=== PATIENT | male | born 1935 | race Asian ===

== ENCOUNTER 2016-12-17 11:41 | Inpatient (IN) | payer MEDICARE, MEDICAID ==
[2016-12-17] VITALS (12 sets, daily range): BP systolic 100–135; BP diastolic 46–81
[~2016-12-17] VITALS: Ht 167.6 cm; Wt 63.5 kg
[~2016-12-17 11:41] MED LIST: ACET-868 GT; AMLO5TAB4 GT; ASPI81TA2 GT; ATOR40TA GT; BISA10SU61 RC; DIVA125C GT; ESCI5TAB GT; HYDR-552 GT; INSU100I19 SQ; INSU100V3 SQ; LISI-658 GT; MAGN400O6 GT; MERO1VIA IV; NA P133E RC; RXVAN XX
[2016-12-17 12:12] LABS: BASOPHILS # (AUTO) 0.1 /CMM (0.0-0.2); BASOPHILS % (AUTO) 0.5 % (0.0-2.0); DIFF TOTAL % 100 %; EOSINOPHILS # (AUTO) 0.6 /CMM (0.0-0.7); EOSINOPHILS % (AUTO) 5.1 % (0.0-6.0); HEMATOCRIT 23 % (39-51); HEMOGLOBIN 7.7 g/dL (13.5-17.5); LYMPHOCYTES # (AUTO) 2.9 /CMM (0.8-4.8); LYMPHOCYTES % (AUTO) 23.9 % (20.0-44.0); MEAN CORPUSCULAR HEMOGLOBIN 28 PG (26.0-33.0); MEAN CORPUSCULAR HGB CONC 33 g/dl (31.0-36.0); MEAN CORPUSCULAR VOLUME 85 fL (80-96); MONOCYTES # (AUTO) 1.2 /CMM (0.1-1.30); MONOCYTES % (AUTO) 10.4 % (2.0-12.0); NEUTROPHILS # (AUTO) 7.2 /CMM (1.8-8.9); NEUTROPHILS % (AUTO) 60.1 % (43.0-81.0); PLATELET COUNT (AUTO) 305 /CMM (150-450); RED BLOOD CELL COUNT(AUTO) 2.74 MIL/uL (4.5-6.0)
[2016-12-17 12:19] LABS: ANION GAP 5 (5-14); CALCIUM, SERUM 7.5 mg/dL (8.5-10.1); CARBON DIOXIDE 37 mmol/L (21-32); CHLORIDE 95 mmol/L (98-107); CREATININE 0.9 mg/dL (0.6-1.3); GLUCOSE 79 mg/dL (74-106); POTASSIUM 5.2 mmol/L (3.5-5.1); SODIUM SERUM 131 mmol/L (136-145); UREA NITROGEN, BLOOD 28 mg/dL (7-18)
[2016-12-17 12:23] LABS: KETONES,URINE Negative (NEGATIVE); LEUKOCYTE ESTERASE ,URINE Moderate (NEGATIVE)
[2016-12-17 12:23] LABS: PROTHROMBIN TIME 10.5 SECS (9.5-12.7)
[2016-12-17 12:25] LABS: ALANINE AMINOTRANSFERASE 17 U/L (12-78); ALBUMIN 1.8 g/dL (3.4-5.0); ASPARTATE AMINOTRANSFERASE 24 U/L (15-37); BILIRUBIN,DIRECT 0.1 mg/dL (0.0-0.2); BILIRUBIN,TOTAL 0.3 mg/dL (0.2-1.0); INDIRECT BILIRUBIN 0.2 mg/dL (0.0-1.1); TOTAL PROTEIN, SERUM 6.1 g/dL (6.4-8.2)
[2016-12-17 12:26] LABS: ADD UA MICROSCOPIC YES
[2016-12-17 12:27] LABS: TROPONIN I < 0.017 ng/mL (0.00-0.056)
[2016-12-17] MEDS ORDERED: METF500T4 GT (12:28)
[2016-12-17] MEDS ORDERED: NUT.237L30 GT (12:28)
[2016-12-17] MEDS ORDERED: DOCU-25 GT (12:28)
[2016-12-17 12:37] LABS: LACTIC ACID 2.3 mmol/L (0.4-2.0)
[2016-12-17 12:39] LABS: ADD URINE CULTURE YES; WBC,URINE TOO NUMEROUS TO COUN /HPF (0-3)
[2016-12-17] MEDS ORDERED: IV NS 0.9% 2,000 ML ONE (12:54)
[2016-12-17] MEDS ORDERED: CEFTRIAXONE 1GM BAG (ER ONLY) 50 ML IV ONE (12:54)
[2016-12-17] MEDS ORDERED: IV SET PRIMARY 1 EA INFUS.SET MC ONE (12:54)
[2016-12-17] MEDS ORDERED: CEFTRIAXONE 1GM BAG (ER ONLY) 1 GM/50 ML PIGGYBACK IV ONE (13:00)
[2016-12-17] MEDS ORDERED: IV NS 0.9% 1,000 ML BAG IV ONE (13:00)
[2016-12-17 13:07] LABS: *LACTIC ACID REFLEX FLAG YES
[2016-12-17] MEDS ORDERED: CEFTRIAXONE 1 G in IV D5W 50 ML IV SCH (14:00)
[2016-12-17] MEDS ORDERED: Z GUARD REMEDY 2 OZ OINT TP PRN (15:00)
[2016-12-17] MEDS ORDERED: ONDANSETRON HCL/PF 4 MG/2 ML VIAL IVP PRN (15:00)
[2016-12-17] MEDS ORDERED: GLYTROL 1,000 ML BAG GT SCH (15:00)
[2016-12-17] MEDS ORDERED: MAGNESIUM HYDROXIDE 30 ML UDC GT PRN (15:00)
[2016-12-17] MEDS ORDERED: BISACODYL SUPP (10 MG) 10 MG/SUPP.RECT SUPP.RECT RC PRN (15:00)
[2016-12-17] MEDS ORDERED: NA PHOS,M-B/NA PHOS,DI-BA 1 EA ENEMA RC PRN (15:00)
[2016-12-17] MEDS ORDERED: DEXTROSE 50%-WATER 50 ML DISP.SYRIN IV PRN (15:00)
[2016-12-17] MEDS ORDERED: FUROSEMIDE 20 MG/2 ML VIAL IV PRN (15:00)
[2016-12-17] MEDS ORDERED: FEE PK DOSING 1 MIN EA MC ONE (15:09)
[2016-12-17] MEDS ORDERED: IV SET PRIMARY PUMP SET 1 EA INFUS.SET MC ONE (15:41)
[2016-12-17] MEDS: IV NS 0.9% 1,000 ML IV PRN (15:46)
[2016-12-17] MEDS ORDERED: SECONDARY IV SET 1 EA INFUS.SET MC ONE ×2 (16:00→16:46)
[2016-12-17] MEDS: CEFTRIAXONE 1 G in IV D5W 50 ML IV SCH (16:03)
[2016-12-17] MEDS: DIVALPROEX SODIUM 125 MG CAP.SPRINK GT SCH (16:46)
[2016-12-17] MEDS: DOCUSATE SODIUM 100 MG CAPSULE PO SCH (16:46)
[2016-12-17] MEDS: BLOOD SUGAR DIAGNOSTIC 1 EACH STRIP IN SCH ×2 (16:47→23:08)
[2016-12-17] MEDS: VANCOMYCIN 1 GM in IV D5W 250 ML IV SCH (16:47)
[2016-12-17] MEDS: METFORMIN 500 MG TABLET GT SCH (16:47)
[2016-12-17] MEDS: GLYTROL 1,000 ML BAG GT SCH (16:55)
[2016-12-17] MEDS ORDERED: IV NS 0.9% 250 ML IV ONE ×3 (17:37→21:47)
[2016-12-17] MEDS: HYDROCODONE/APAP 5/325MG 1 EACH TABLET GT SCH (21:00)
[2016-12-17] MEDS ORDERED: BLOOD IV SET 1 EA INFUS.SET MC ONE (21:44)
[2016-12-17] MEDS: INSULIN DETEMIR 100 UNIT/ML CARTRIDGE SQ SCH (22:00)
[2016-12-17] MEDS: ATORVASTATIN 40 MG TABLET GT SCH (22:47)
[2016-12-17] MEDS: INSULIN REGULAR, HUMAN 100 UNIT/ML 3 ML VIAL SQ PRN ×2 (23:21→23:36)
[2016-12-18 01:10] VITALS: BP 145/54
[2016-12-18 04:00] VITALS: BP 129/61
[2016-12-18] MEDS: VANCOMYCIN 1 GM in IV D5W 250 ML IV SCH ×2 (05:41→16:33)
[2016-12-18 06:53] LABS: BASOPHILS # (AUTO) 0.1 /CMM (0.0-0.2); BASOPHILS % (AUTO) 0.5 % (0.0-2.0); DIFF TOTAL % 100 %; EOSINOPHILS # (AUTO) 0.3 /CMM (0.0-0.7); EOSINOPHILS % (AUTO) 3.1 % (0.0-6.0); HEMATOCRIT 29 % (39-51); HEMOGLOBIN 9.9 g/dL (13.5-17.5); LYMPHOCYTES # (AUTO) 1.8 /CMM (0.8-4.8); LYMPHOCYTES % (AUTO) 16.1 % (20.0-44.0); MEAN CORPUSCULAR HEMOGLOBIN 31 PG (26.0-33.0); MEAN CORPUSCULAR HGB CONC 34 g/dl (31.0-36.0); MEAN CORPUSCULAR VOLUME 89 fL (80-96); MONOCYTES # (AUTO) 1.5 /CMM (0.1-1.30); MONOCYTES % (AUTO) 13.3 % (2.0-12.0); NEUTROPHILS # (AUTO) 7.6 /CMM (1.8-8.9); PLATELET COUNT (AUTO) 256 /CMM (150-450); RED BLOOD CELL COUNT(AUTO) 3.24 MIL/uL (4.5-6.0); WHITE BLOOD COUNT (AUTO) 11.3 K/uL (4.3-11.0)
[2016-12-18] MEDS: BLOOD SUGAR DIAGNOSTIC 1 EACH STRIP IN SCH ×3 (06:55→17:31)
[2016-12-18] MEDS: INSULIN REGULAR, HUMAN 100 UNIT/ML 3 ML VIAL SQ PRN ×2 (06:56→11:50)
[2016-12-18 07:17] LABS: THYROID STIMULATING HORMONE 1.958 uIU/mL (0.358-3.74)
[2016-12-18 07:26] LABS: ALBUMIN 1.8 g/dL (3.4-5.0); BILIRUBIN,TOTAL 0.3 mg/dL (0.2-1.0); CREATININE 0.8 mg/dL (0.6-1.3); PHOSPHORUS 4.6 mg/dL (2.5-4.9); TOTAL PROTEIN, SERUM 6.1 g/dL (6.4-8.2)
[2016-12-18 08:00] VITALS: BP_SYST 120; BP_SYST 145; BP_DIAS 58; BP_DIAS 65
[2016-12-18] MEDS: ESCITALOPRAM OXALATE (10 MG) 10 MG TABLET GT SCH (08:29)
[2016-12-18] MEDS: METFORMIN 500 MG TABLET GT SCH ×2 (08:29→16:33)
[2016-12-18] MEDS: DIVALPROEX SODIUM 125 MG CAP.SPRINK GT SCH ×2 (08:29→16:33)
[2016-12-18] MEDS: DOCUSATE SODIUM 100 MG CAPSULE PO SCH ×2 (08:30→16:33)
[2016-12-18] MEDS: AMLODIPINE BESYLATE 5 MG TABLET GT SCH (08:30)
[2016-12-18] MEDS: LISINOPRIL (20MG) 20 MG TABLET GT SCH (08:31)
[2016-12-18] MEDS: HYDROCODONE/APAP 5/325MG 1 EACH TABLET GT SCH ×2 (08:31→21:01)
[2016-12-18] MEDS: ASPIRIN 81 MG TAB.CHEW GT SCH (08:31)
[2016-12-18 14:41] LABS: THYROID STIMULATING HORMONE 2.319 uIU/mL (0.358-3.74); URIC ACID 5.3 mg/dL (2.6-7.2)
[2016-12-18 15:08] LABS: %FREE PSA 20.1 % (0-10); FREE PSA 0.49 ng/mL (0.00-45)
[2016-12-18] MEDS: CEFTRIAXONE 1 G in IV D5W 50 ML IV SCH (15:51)
[2016-12-18 15:52] VITALS: BP 119/54
[2016-12-18 16:00] VITALS: BP 119/54
[2016-12-18 20:00] VITALS: BP 136/57
[2016-12-18] MEDS: ATORVASTATIN 40 MG TABLET GT SCH (21:01)
[2016-12-18] MEDS: INSULIN DETEMIR 100 UNIT/ML CARTRIDGE SQ SCH (21:05)
[2016-12-18] MEDS: IV NS 0.9% 1,000 ML IV PRN (21:19)
[2016-12-19] VITALS: BP 134/60
[2016-12-19] MEDS: BLOOD SUGAR DIAGNOSTIC 1 EACH STRIP IN SCH ×5 (00:24→23:20)
[2016-12-19] MEDS: GLYTROL 1,000 ML BAG GT SCH ×2 (01:28→18:21)
[2016-12-19 04:00] VITALS: BP 130/58
[2016-12-19] MEDS: VANCOMYCIN 1 GM in IV D5W 250 ML IV SCH ×2 (04:00→04:45)
[2016-12-19 04:39] LABS: CALCIUM, SERUM 7.6 mg/dL (8.5-10.1); CREATININE 0.8 mg/dL (0.6-1.3); POTASSIUM 4.6 mmol/L (3.5-5.1)
[2016-12-19 08:00] VITALS: BP 147/60
[2016-12-19] MEDS: DIVALPROEX SODIUM 125 MG CAP.SPRINK GT SCH ×2 (09:01→17:55)
[2016-12-19] MEDS: ASPIRIN 81 MG TAB.CHEW GT SCH (09:01)
[2016-12-19] MEDS: HYDROCODONE/APAP 5/325MG 1 EACH TABLET GT SCH ×2 (09:03→21:22)
[2016-12-19] MEDS: METFORMIN 500 MG TABLET GT SCH ×2 (09:10→17:55)
[2016-12-19] MEDS: DOCUSATE SODIUM 100 MG CAPSULE PO SCH ×2 (09:10→17:55)
[2016-12-19] MEDS: AMLODIPINE BESYLATE 5 MG TABLET GT SCH (09:10)
[2016-12-19] MEDS: LISINOPRIL (20MG) 20 MG TABLET GT SCH (09:12)
[2016-12-19] MEDS: ESCITALOPRAM OXALATE (10 MG) 10 MG TABLET GT SCH (09:13)
[2016-12-19] MEDS: INSULIN REGULAR, HUMAN 100 UNIT/ML 3 ML VIAL SQ PRN (12:28)
[2016-12-19 13:21] LABS: VIT D, 25-HYDROXY 26.8 ng/mL (30.0-100.0)
[2016-12-19] MEDS ORDERED: IV NS 0.9% 250 ML IV ONE (15:50)
[2016-12-19] MEDS: CEFTRIAXONE 1 G in IV D5W 50 ML IV SCH (15:54)
[2016-12-19 16:00] VITALS: BP 120/53
[2016-12-19] MEDS ORDERED: VANCOMYCIN 1 GM in IV D5W 250 ML IV SCH (16:00)
[2016-12-19] MEDS: LACTOBACILLUS RHAMNOSUS GG 1 EACH CAP.SPRINK GT SCH (17:56)
[2016-12-19 19:55] VITALS: BP 127/57
[2016-12-19 20:00] VITALS: BP 127/57
[2016-12-19] MEDS: ATORVASTATIN 40 MG TABLET GT SCH (21:22)
[2016-12-19] MEDS: INSULIN DETEMIR 100 UNIT/ML CARTRIDGE SQ SCH (21:26)
[2016-12-20 04:00] VITALS: BP 132/44
[2016-12-20] MEDS: BLOOD SUGAR DIAGNOSTIC 1 EACH STRIP IN SCH ×4 (05:51→23:18)
[2016-12-20 07:06] LABS: BASOPHILS # (AUTO) 0.1 /CMM (0.0-0.2); BASOPHILS % (AUTO) 0.6 % (0.0-2.0); DIFF TOTAL % 100 %; EOSINOPHILS % (AUTO) 8.6 % (0.0-6.0); HEMATOCRIT 27 % (39-51); HEMOGLOBIN 9.2 g/dL (13.5-17.5); LYMPHOCYTES # (AUTO) 2.4 /CMM (0.8-4.8); LYMPHOCYTES % (AUTO) 20.7 % (20.0-44.0); MEAN CORPUSCULAR HEMOGLOBIN 30 PG (26.0-33.0); MEAN CORPUSCULAR HGB CONC 34 g/dl (31.0-36.0); MEAN CORPUSCULAR VOLUME 89 fL (80-96); MONOCYTES # (AUTO) 1.6 /CMM (0.1-1.30); MONOCYTES % (AUTO) 13.4 % (2.0-12.0); NEUTROPHILS # (AUTO) 6.7 /CMM (1.8-8.9); NEUTROPHILS % (AUTO) 56.7 % (43.0-81.0); PLATELET COUNT (AUTO) 231 /CMM (150-450); RED BLOOD CELL COUNT(AUTO) 3.07 MIL/uL (4.5-6.0); WHITE BLOOD COUNT (AUTO) 11.8 K/uL (4.3-11.0)
[2016-12-20 07:35] LABS: CALCIUM, SERUM 7.5 mg/dL (8.5-10.1); CREATININE 0.9 mg/dL (0.6-1.3); POTASSIUM 4.5 mmol/L (3.5-5.1)
[2016-12-20 08:00] VITALS: BP 142/57
[2016-12-20] MEDS: DIVALPROEX SODIUM 125 MG CAP.SPRINK GT SCH ×2 (08:39→16:05)
[2016-12-20] MEDS: ASPIRIN 81 MG TAB.CHEW GT SCH (08:39)
[2016-12-20] MEDS: METFORMIN 500 MG TABLET GT SCH ×2 (08:39→16:05)
[2016-12-20] MEDS: DOCUSATE SODIUM 100 MG CAPSULE PO SCH ×2 (08:39→16:05)
[2016-12-20] MEDS: LACTOBACILLUS RHAMNOSUS GG 1 EACH CAP.SPRINK GT SCH ×2 (08:40→16:05)
[2016-12-20] MEDS: HYDROCODONE/APAP 5/325MG 1 EACH TABLET GT SCH ×2 (08:41→21:51)
[2016-12-20] MEDS: AMLODIPINE BESYLATE 5 MG TABLET GT SCH (08:42)
[2016-12-20] MEDS: ESCITALOPRAM OXALATE (10 MG) 10 MG TABLET GT SCH (08:42)
[2016-12-20] MEDS: LISINOPRIL (20MG) 20 MG TABLET GT SCH (08:43)
[2016-12-20] MEDS: GLYTROL 1,000 ML BAG GT SCH (08:52)
[2016-12-20] MEDS: INSULIN REGULAR, HUMAN 100 UNIT/ML 3 ML VIAL SQ PRN (12:15)
[2016-12-20] MEDS ORDERED: IV NS 0.9% 500 ML IV ONE ×2 (14:34→15:00)
[2016-12-20] MEDS ORDERED: IV NS 0.9% 500 ML BAG IV ONE (15:00)
[2016-12-20 16:00] VITALS: BP 145/72
[2016-12-20] MEDS: CEFTRIAXONE 1 G in IV D5W 50 ML IV SCH (16:01)
[2016-12-20 20:00] VITALS: BP 123/55
[2016-12-20] MEDS: ATORVASTATIN 40 MG TABLET GT SCH (21:46)
[2016-12-20] MEDS: INSULIN DETEMIR 100 UNIT/ML CARTRIDGE SQ SCH (21:51)
[2016-12-21 04:00] VITALS: BP 128/52
[2016-12-21] MEDS: BLOOD SUGAR DIAGNOSTIC 1 EACH STRIP IN SCH ×2 (06:50→11:30)
[2016-12-21] MEDS: INSULIN REGULAR, HUMAN 100 UNIT/ML 3 ML VIAL SQ PRN ×2 (06:50→11:36)
[2016-12-21 07:59] LABS: CALCIUM, SERUM 7.7 mg/dL (8.5-10.1); POTASSIUM 4.6 mmol/L (3.5-5.1)
[2016-12-21 08:00] VITALS: BP 134/54
[2016-12-21 09:08] VITALS: BP 134/54
[2016-12-21] MEDS: DOCUSATE SODIUM 100 MG CAPSULE PO SCH (09:08)
[2016-12-21] MEDS: LISINOPRIL (20MG) 20 MG TABLET GT SCH (09:08)
[2016-12-21] MEDS: DIVALPROEX SODIUM 125 MG CAP.SPRINK GT SCH (09:08)
[2016-12-21] MEDS: HYDROCODONE/APAP 5/325MG 1 EACH TABLET GT SCH (09:08)
[2016-12-21] MEDS: ASPIRIN 81 MG TAB.CHEW GT SCH (09:08)
[2016-12-21] MEDS: LACTOBACILLUS RHAMNOSUS GG 1 EACH CAP.SPRINK GT SCH (09:08)
[2016-12-21] MEDS: METFORMIN 500 MG TABLET GT SCH (09:08)
[2016-12-21] MEDS: AMLODIPINE BESYLATE 5 MG TABLET GT SCH (09:08)
[2016-12-21] MEDS: ESCITALOPRAM OXALATE (10 MG) 10 MG TABLET GT SCH (09:08)
[2016-12-21] MEDS ORDERED: COLISTIMETHATE SODIUM 100 MG in IV NS 0.9% 50 ML IV SCH (11:00)
[2016-12-21] MEDS ORDERED: SECONDARY IV SET 1 EA INFUS.SET MC ONE (11:23)
[2016-12-21] MEDS ORDERED: IV SET PRIMARY PUMP SET 1 EA INFUS.SET MC ONE (12:06)
== END 2016-12-21 16:25 | DRG 689 ==
LOC: ER 11:45 → MEDSG1 13:11
PROVIDERS: ADMIT Nurse Practitioner Acute Care; ATTEND Nurse Practitioner Acute Care
PROC: 30233N1 Transfusion of Nonautologous Red Blood Cells into Peripheral Vein, Percutaneous Approach (ICD-10-PCS; principal; 2016-12-17)
PROC: 05H533Z Insertion of Infusion Device into Right Subclavian Vein, Percutaneous Approach (ICD-10-PCS; 2016-12-17)
PROC: B546ZZA Ultrasonography of Right Subclavian Vein, Guidance (ICD-10-PCS; 2016-12-17)
DX: N39.0 Urinary tract infection, site not specified (principal); E43 Unspecified severe protein-calorie malnutrition; R53.2 Functional quadriplegia; D62 Acute posthemorrhagic anemia; E87.1 Hypo-osmolality and hyponatremia; E87.2 Acidosis; E86.0 Dehydration; E78.5 Hyperlipidemia, unspecified; E11.9 Type 2 diabetes mellitus without complications; G30.9 Alzheimer's disease, unspecified; F29 Unspecified psychosis not due to a substance or known physiological condition; Z86.73 Personal history of transient ischemic attack (TIA), and cerebral infarction without residual deficits; Z93.1 Gastrostomy status; M10.9 Gout, unspecified; I10 Essential (primary) hypertension; D64.9 Anemia, unspecified; E87.5 Hyperkalemia; Z68.22 Body mass index [BMI] 22.0-22.9, adult; F02.80 Dementia in other diseases classified elsewhere, unspecified severity, without behavioral disturbance, psychotic disturbance, mood disturbance, and anxiety; S81.802A Unspecified open wound, left lower leg, initial encounter; X58.XXXA Exposure to other specified factors, initial encounter; Y92.9 Unspecified place or not applicable
CPT/HCPCS: 36415; 36569; 71010-TC; 80048-TC; 80053-TC; 80061-TC; 80076-TC; 80202-TC; 81000-TC; 82272-TC; 82306; 82378; 82728-TC; 82746; 82962-TC; 83010; 83540-TC; 83605-TC; 83615-TC; 83735-TC; 84100-TC; 84153-TC; 84154-TC; 84443-TC; 84484-TC; 84550-TC; 85025-TC; 85652-TC; 85730-TC; 86850-TC; 86921-TC; 87040-TC; 87081-TC; 87086-TC; 87186-TC; 94799-TC; A4216; A4606; A6402; J0696; J0770; J1815; J1940; J3370; J7030; J7040; J7050; J7060; P9016-BL; Z7610

== ENCOUNTER 2017-01-17 17:05 | Inpatient (IN) | payer MEDICARE, MEDICAID ==
[~2017-01-17] VITALS: Ht 167.6 cm; Wt 56.2 kg
[~2017-01-17 17:05] MED LIST changes: -ASPI81TA2 GT; +DOCU-25 GT; -MERO1VIA IV; +METF500T4 GT; +NUT.237L30 GT; -RXVAN XX
[2017-01-17 17:42] LABS: BASOPHILS # (AUTO) 0.3 /CMM (0.0-0.2); BASOPHILS % (AUTO) 1.5 % (0.0-2.0); CALCIUM, SERUM 7.8 mg/dL (8.5-10.1); DIFF TOTAL % 100 %; EOSINOPHILS # (AUTO) 0.7 /CMM (0.0-0.7); HEMATOCRIT 23 % (39-51); HEMOGLOBIN 7.7 g/dL (13.5-17.5); LYMPHOCYTES # (AUTO) 3.2 /CMM (0.8-4.8); LYMPHOCYTES % (AUTO) 19.4 % (20.0-44.0); MEAN CORPUSCULAR HEMOGLOBIN 29 PG (26.0-33.0); MEAN CORPUSCULAR HGB CONC 34 g/dl (31.0-36.0); MEAN CORPUSCULAR VOLUME 85 fL (80-96); MONOCYTES # (AUTO) 1.2 /CMM (0.1-1.30); MONOCYTES % (AUTO) 7.2 % (2.0-12.0); NEUTROPHILS # (AUTO) 11.3 /CMM (1.8-8.9); NEUTROPHILS % (AUTO) 67.9 % (43.0-81.0); PLATELET COUNT (AUTO) 290 /CMM (150-450); POTASSIUM 4.3 mmol/L (3.5-5.1); RED BLOOD CELL COUNT(AUTO) 2.66 MIL/uL (4.5-6.0); WHITE BLOOD COUNT (AUTO) 16.7 K/uL (4.3-11.0)
[2017-01-17 17:47] LABS: ALBUMIN 1.6 g/dL (3.4-5.0); BILIRUBIN,TOTAL 0.2 mg/dL (0.2-1.0)
[2017-01-17 17:49] LABS: INDIRECT BILIRUBIN 0.2 mg/dL (0.0-1.1)
[2017-01-17 17:50] LABS: TROPONIN I 0.019 ng/mL (0.00-0.056)
[2017-01-17 17:51] LABS: PROTHROMBIN TIME 10.5 SECS (9.5-12.7)
[2017-01-17 17:58] LABS: LACTIC ACID 1.5 mmol/L (0.4-2.0)
[2017-01-17 18:22] LABS: KETONES,URINE Negative (NEGATIVE); LEUKOCYTE ESTERASE ,URINE Trace (NEGATIVE); PH,URINE 8.5 (5.0-8.0)
[2017-01-17 18:27] LABS: ADD UA MICROSCOPIC YES
[2017-01-17] MEDS ORDERED: CEFTRIAXONE 1 G in IV D5W 50 ML IV ONE (18:30)
[2017-01-17] MEDS ORDERED: CEFTRIAXONE 1GM BAG (ER ONLY) 50 ML IV ONE (18:36)
[2017-01-17] MEDS ORDERED: IV SET PRIMARY PUMP SET 1 EA INFUS.SET MC ONE (18:36)
[2017-01-17 18:41] LABS: RBC,URINE TOO NUMEROUS TO COUN /HPF (0-2)
[2017-01-17 18:42] LABS: ADD URINE CULTURE YES
[2017-01-17] MEDS ORDERED: INSULIN REGULAR, HUMAN 100 UNIT/ML 3 ML VIAL SQ PRN (20:30)
[2017-01-17] MEDS ORDERED: ACETAMINOPHEN 325 MG TABLET PO PRN (20:30)
[2017-01-17] MEDS ORDERED: MORPHINE SULFATE INJ 2 MG/ML DISP.SYRIN IV PRN (20:30)
[2017-01-17] MEDS ORDERED: ONDANSETRON HCL/PF 4 MG/2 ML VIAL IVP PRN (20:30)
[2017-01-17] MEDS ORDERED: Z GUARD REMEDY 2 OZ OINT TP PRN (20:30)
[2017-01-17] MEDS ORDERED: MAGNESIUM HYDROXIDE 30 ML UDC GT PRN (20:30)
[2017-01-17] MEDS ORDERED: DEXTROSE 50%-WATER 50 ML DISP.SYRIN IV PRN (21:00)
[2017-01-17] MEDS: GLYTROL 1,000 ML BAG GT SCH (21:09)
[2017-01-17] MEDS: ATORVASTATIN 40 MG TABLET GT SCH (21:35)
[2017-01-17] MEDS: INSULIN DETEMIR 100 UNIT/ML CARTRIDGE SQ SCH (21:39)
[2017-01-17] MEDS ORDERED: IV NS 0.9% 250 ML IV ONE (22:07)
[2017-01-17] MEDS ORDERED: BLOOD IV SET 1 EA INFUS.SET MC ONE (22:07)
[2017-01-17 23:02] VITALS: BP 158/80
[2017-01-17 23:20] VITALS: BP 135/70
[2017-01-17] MEDS: BLOOD SUGAR DIAGNOSTIC 1 EACH STRIP IN SCH (23:31)
[2017-01-17] MEDS: INSULIN REGULAR, HUMAN 100 UNIT/ML 3 ML VIAL SQ PRN (23:34)
[2017-01-18] VITALS (13 sets, daily range): BP systolic 136–158; BP diastolic 65–76
[2017-01-18] MEDS ORDERED: IV SET PRIMARY PUMP SET 1 EA INFUS.SET MC ONE (04:38)
[2017-01-18] MEDS: BLOOD SUGAR DIAGNOSTIC 1 EACH STRIP IN SCH ×4 (05:54→23:23)
[2017-01-18] MEDS: IV NS 0.9% 1,000 ML IV PRN (05:55)
[2017-01-18 06:37] LABS: BASOPHILS # (AUTO) 0.5 /CMM (0.0-0.2); BASOPHILS % (AUTO) 4.5 % (0.0-2.0); DIFF TOTAL % 100 %; EOSINOPHILS # (AUTO) 0.7 /CMM (0.0-0.7); EOSINOPHILS % (AUTO) 5.5 % (0.0-6.0); HEMATOCRIT 30 % (39-51); HEMOGLOBIN 10.1 g/dL (13.5-17.5); LYMPHOCYTES # (AUTO) 2.8 /CMM (0.8-4.8); MEAN CORPUSCULAR HEMOGLOBIN 29 PG (26.0-33.0); MEAN CORPUSCULAR HGB CONC 34 g/dl (31.0-36.0); MEAN CORPUSCULAR VOLUME 85 fL (80-96); MONOCYTES # (AUTO) 1.2 /CMM (0.1-1.30); MONOCYTES % (AUTO) 10.3 % (2.0-12.0); NEUTROPHILS # (AUTO) 6.8 /CMM (1.8-8.9); NEUTROPHILS % (AUTO) 56.7 % (43.0-81.0); PLATELET COUNT (AUTO) 276 /CMM (150-450)
[2017-01-18 06:59] LABS: ALBUMIN 1.5 g/dL (3.4-5.0); BILIRUBIN,DIRECT 0.1 mg/dL (0.0-0.2); BILIRUBIN,TOTAL 0.5 mg/dL (0.2-1.0); CALCIUM, SERUM 7.8 mg/dL (8.5-10.1); CREATININE 0.8 mg/dL (0.6-1.3); INDIRECT BILIRUBIN 0.4 mg/dL (0.0-1.1); PHOSPHORUS 4.3 mg/dL (2.5-4.9); POTASSIUM 4.1 mmol/L (3.5-5.1); TOTAL PROTEIN, SERUM 5.9 g/dL (6.4-8.2)
[2017-01-18 07:12] LABS: THYROID STIMULATING HORMONE 3.531 uIU/mL (0.358-3.74)
[2017-01-18] MEDS: DIVALPROEX SODIUM 125 MG CAP.SPRINK GT SCH ×2 (08:35→18:02)
[2017-01-18] MEDS: AMLODIPINE BESYLATE 5 MG TABLET GT SCH (08:36)
[2017-01-18] MEDS: ESCITALOPRAM OXALATE (10 MG) 10 MG TABLET GT SCH (08:36)
[2017-01-18] MEDS: LISINOPRIL (20MG) 20 MG TABLET GT SCH (08:37)
[2017-01-18] MEDS: METFORMIN 500 MG TABLET GT SCH ×2 (08:37→18:02)
[2017-01-18] MEDS: PANTOPRAZOLE 40 MG VIAL IV SCH (08:37)
[2017-01-18] MEDS: INSULIN REGULAR, HUMAN 100 UNIT/ML 3 ML VIAL SQ PRN (18:06)
[2017-01-18] MEDS: CEFTRIAXONE 1 G in IV D5W 50 ML IV SCH (18:07)
[2017-01-18] MEDS ORDERED: SECONDARY IV SET 1 EA INFUS.SET MC ONE (18:16)
[2017-01-18] MEDS: GLYTROL 1,000 ML BAG GT SCH (20:06)
[2017-01-18] MEDS: ATORVASTATIN 40 MG TABLET GT SCH (21:23)
[2017-01-18] MEDS: INSULIN DETEMIR 100 UNIT/ML CARTRIDGE SQ SCH (21:32)
[2017-01-19] VITALS (7 sets, daily range): BP systolic 130–154; BP diastolic 67–77
[2017-01-19] MEDS: IV NS 0.9% 1,000 ML IV PRN ×2 (05:31→17:04)
[2017-01-19] MEDS: BLOOD SUGAR DIAGNOSTIC 1 EACH STRIP IN SCH ×4 (05:37→23:34)
[2017-01-19 06:27] LABS: BASOPHILS # (AUTO) 0.3 /CMM (0.0-0.2); BASOPHILS % (AUTO) 2.6 % (0.0-2.0); DIFF TOTAL % 100 %; EOSINOPHILS # (AUTO) 0.3 /CMM (0.0-0.7); EOSINOPHILS % (AUTO) 2.7 % (0.0-6.0); HEMATOCRIT 30 % (39-51); LYMPHOCYTES # (AUTO) 2.7 /CMM (0.8-4.8); LYMPHOCYTES % (AUTO) 22.5 % (20.0-44.0); MEAN CORPUSCULAR HEMOGLOBIN 29 PG (26.0-33.0); MEAN CORPUSCULAR HGB CONC 34 g/dl (31.0-36.0); MEAN CORPUSCULAR VOLUME 88 fL (80-96); MONOCYTES # (AUTO) 1.4 /CMM (0.1-1.30); NEUTROPHILS # (AUTO) 7.2 /CMM (1.8-8.9); NEUTROPHILS % (AUTO) 60.2 % (43.0-81.0); PLATELET COUNT (AUTO) 286 /CMM (150-450); RED BLOOD CELL COUNT(AUTO) 3.41 MIL/uL (4.5-6.0); WHITE BLOOD COUNT (AUTO) 11.9 K/uL (4.3-11.0)
[2017-01-19 06:35] LABS: ALBUMIN 1.5 g/dL (3.4-5.0); CALCIUM, SERUM 7.7 mg/dL (8.5-10.1); CREATININE 0.8 mg/dL (0.6-1.3); POTASSIUM 3.7 mmol/L (3.5-5.1)
[2017-01-19] MEDS: PANTOPRAZOLE 40 MG VIAL IV SCH (09:35)
[2017-01-19] MEDS: DIVALPROEX SODIUM 125 MG CAP.SPRINK GT SCH ×2 (09:35→16:17)
[2017-01-19] MEDS: ESCITALOPRAM OXALATE (10 MG) 10 MG TABLET GT SCH (09:36)
[2017-01-19] MEDS: METFORMIN 500 MG TABLET GT SCH ×2 (09:36→16:17)
[2017-01-19] MEDS: AMLODIPINE BESYLATE 5 MG TABLET GT SCH (09:38)
[2017-01-19] MEDS: LISINOPRIL (20MG) 20 MG TABLET GT SCH (09:39)
[2017-01-19] MEDS ORDERED: SECONDARY IV SET 1 EA INFUS.SET MC ONE (16:12)
[2017-01-19] MEDS: ALBUMIN 25% 25 GM in PREMIX 1 EA IV SCH (16:17)
[2017-01-19] MEDS: CEFTRIAXONE 1 G in IV D5W 50 ML IV SCH (16:19)
[2017-01-19] MEDS: GLYTROL 1,000 ML BAG GT SCH (16:58)
[2017-01-19] MEDS: INSULIN REGULAR, HUMAN 100 UNIT/ML 3 ML VIAL SQ PRN ×2 (18:30→23:36)
[2017-01-19] MEDS: INSULIN DETEMIR 100 UNIT/ML CARTRIDGE SQ SCH (22:00)
[2017-01-19] MEDS: ATORVASTATIN 40 MG TABLET GT SCH (22:03)
[2017-01-20] VITALS: BP 145/73
[2017-01-20] MEDS: ALBUMIN 25% 25 GM in PREMIX 1 EA IV SCH (02:36)
[2017-01-20] MEDS: BLOOD SUGAR DIAGNOSTIC 1 EACH STRIP IN SCH ×3 (05:42→18:00)
[2017-01-20 06:07] VITALS: BP 140/68
[2017-01-20 06:41] LABS: BASOPHILS # (AUTO) 0.2 /CMM (0.0-0.2); BASOPHILS % (AUTO) 1.2 % (0.0-2.0); DIFF TOTAL % 100 %; EOSINOPHILS # (AUTO) 0.2 /CMM (0.0-0.7); EOSINOPHILS % (AUTO) 1.8 % (0.0-6.0); HEMATOCRIT 31 % (39-51); HEMOGLOBIN 10.3 g/dL (13.5-17.5); LYMPHOCYTES # (AUTO) 2.3 /CMM (0.8-4.8); MEAN CORPUSCULAR HEMOGLOBIN 30 PG (26.0-33.0); MEAN CORPUSCULAR HGB CONC 34 g/dl (31.0-36.0); MEAN CORPUSCULAR VOLUME 88 fL (80-96); MONOCYTES # (AUTO) 1.7 /CMM (0.1-1.30); MONOCYTES % (AUTO) 12.8 % (2.0-12.0); NEUTROPHILS # (AUTO) 8.9 /CMM (1.8-8.9); NEUTROPHILS % (AUTO) 67.2 % (43.0-81.0); PLATELET COUNT (AUTO) 278 /CMM (150-450); RED BLOOD CELL COUNT(AUTO) 3.47 MIL/uL (4.5-6.0); WHITE BLOOD COUNT (AUTO) 13.3 K/uL (4.3-11.0)
[2017-01-20 06:56] LABS: ALBUMIN 2.3 g/dL (3.4-5.0); CALCIUM, SERUM 7.8 mg/dL (8.5-10.1); CREATININE 0.8 mg/dL (0.6-1.3); POTASSIUM 3.5 mmol/L (3.5-5.1)
[2017-01-20 08:00] VITALS: BP 140/68
[2017-01-20] MEDS: METFORMIN 500 MG TABLET GT SCH ×2 (09:06→18:00)
[2017-01-20] MEDS: PANTOPRAZOLE 40 MG VIAL IV SCH (09:06)
[2017-01-20] MEDS: LISINOPRIL (20MG) 20 MG TABLET GT SCH (09:06)
[2017-01-20] MEDS: DIVALPROEX SODIUM 125 MG CAP.SPRINK GT SCH ×2 (09:07→18:00)
[2017-01-20] MEDS: AMLODIPINE BESYLATE 5 MG TABLET GT SCH (09:07)
[2017-01-20] MEDS: ESCITALOPRAM OXALATE (10 MG) 10 MG TABLET GT SCH (09:07)
[2017-01-20] MEDS: IV NS 0.9% 1,000 ML IV PRN (09:08)
[2017-01-20] MEDS: GLYTROL 1,000 ML BAG GT SCH (09:09)
[2017-01-20] MEDS: MUPIROCIN OINT 2% 22 GM TUBE SCH ×2 (11:47→22:09)
[2017-01-20 16:00] VITALS: BP 135/71
[2017-01-20] MEDS: INSULIN REGULAR, HUMAN 100 UNIT/ML 3 ML VIAL SQ PRN (18:04)
[2017-01-20 20:00] VITALS: BP 159/74
[2017-01-20 20:38] LABS: KETONES,URINE NEGATIVE (NEGATIVE); LEUKOCYTE ESTERASE ,URINE NEGATIVE (NEGATIVE)
[2017-01-20 20:53] LABS: ADD UA MICROSCOPIC YES
[2017-01-20 20:55] LABS: RBC,URINE 21-50 /HPF (0-2)
[2017-01-20 20:56] LABS: ADD URINE CULTURE NO; WBC,URINE 0-2 /HPF (0-3)
[2017-01-20] MEDS: ATORVASTATIN 40 MG TABLET GT SCH (22:10)
[2017-01-20] MEDS: INSULIN DETEMIR 100 UNIT/ML CARTRIDGE SQ SCH (22:18)
[2017-01-21] MEDS: BLOOD SUGAR DIAGNOSTIC 1 EACH STRIP IN SCH ×3 (00:19→12:42)
[2017-01-21] MEDS: INSULIN REGULAR, HUMAN 100 UNIT/ML 3 ML VIAL SQ PRN ×2 (00:21→05:43)
[2017-01-21] MEDS: GLYTROL 1,000 ML BAG GT SCH (03:17)
[2017-01-21 08:00] VITALS: BP 165/74
[2017-01-21] MEDS: DIVALPROEX SODIUM 125 MG CAP.SPRINK GT SCH (08:39)
[2017-01-21] MEDS: PANTOPRAZOLE 40 MG VIAL IV SCH (08:39)
[2017-01-21 08:40] VITALS: BP 165/75
[2017-01-21] MEDS: AMLODIPINE BESYLATE 5 MG TABLET GT SCH (08:40)
[2017-01-21] MEDS: ESCITALOPRAM OXALATE (10 MG) 10 MG TABLET GT SCH (08:40)
[2017-01-21] MEDS: METFORMIN 500 MG TABLET GT SCH (08:40)
[2017-01-21] MEDS: LISINOPRIL (20MG) 20 MG TABLET GT SCH (08:40)
[2017-01-21] MEDS: MUPIROCIN OINT 2% 22 GM TUBE SCH (08:53)
== END 2017-01-21 15:15 | DRG 383 ==
LOC: ER 17:07 → TELE 20:11 → MED 01-20 09:03
PROC: 30233N1 Transfusion of Nonautologous Red Blood Cells into Peripheral Vein, Percutaneous Approach (ICD-10-PCS; principal; 2017-01-17)
DX: K27.7 Chronic peptic ulcer, site unspecified, without hemorrhage or perforation (principal); N17.0 Acute kidney failure with tubular necrosis; E43 Unspecified severe protein-calorie malnutrition; G93.40 Encephalopathy, unspecified; R53.2 Functional quadriplegia; N39.0 Urinary tract infection, site not specified; E87.2 Acidosis; D64.9 Anemia, unspecified; G30.9 Alzheimer's disease, unspecified; F02.80 Dementia in other diseases classified elsewhere, unspecified severity, without behavioral disturbance, psychotic disturbance, mood disturbance, and anxiety; F41.9 Anxiety disorder, unspecified; Z93.1 Gastrostomy status; I11.9 Hypertensive heart disease without heart failure; E78.5 Hyperlipidemia, unspecified; M10.9 Gout, unspecified; E11.9 Type 2 diabetes mellitus without complications; R31.9 Hematuria, unspecified; R13.10 Dysphagia, unspecified; F32.9 Major depressive disorder, single episode, unspecified; E86.0 Dehydration; E87.5 Hyperkalemia; Z86.73 Personal history of transient ischemic attack (TIA), and cerebral infarction without residual deficits
CPT/HCPCS: 36415; 71010-TC; 80048-TC; 80061-TC; 80076-TC; 81000-TC; 82040-TC; 82272-TC; 82728-TC; 82746; 82962-TC; 83540-TC; 83605-TC; 83735-TC; 84100-TC; 84443-TC; 84484-TC; 85025-TC; 85652-TC; 85730-TC; 86850-TC; 86921-TC; 87040-TC; 87081-TC; 87086-TC; 94799-TC; A4216; A4606; A6402; C9113; J0696; J1815; J7030; J7050; J7060; P9016-BL; P9047; Z7610

== ENCOUNTER 2017-02-15 13:48 | Inpatient (IN) | payer MEDICARE, MEDICAID ==
[~2017-02-15] VITALS: Ht 170.2 cm; Wt 62.1 kg
[2017-02-15] VITALS (12 sets, daily range): BP systolic 104–151; BP diastolic 65–89
[2017-02-15] MEDS ORDERED: NTG 50 MG/D5W250 ML BOTTL 250 ML IV ONE ×2 (13:56→14:00)
[2017-02-15] MEDS ORDERED: IV SET PRIMARY PUMP SET 1 EA INFUS.SET MC ONE ×4 (13:56→17:59)
--- NOTE | 2017-02-15 14:00 | NUR ---
BIB RA FROM [facility], SOB, WHEEZING, CONGESTION, PATIENT IS PLACED ON MONITOR, RESPIRATORY AT BEDSIDE, ON MASK WITH MD AT BEDSIDE, WILL CONTINUE TO MONITOR CLOSELY.
[2017-02-15 14:09] LABS: BASOPHILS # (AUTO) 0.6 /CMM (0.0-0.2); BASOPHILS % (AUTO) 2.5 % (0.0-2.0); EOSINOPHILS # (AUTO) 0.1 /CMM (0.0-0.7); EOSINOPHILS % (AUTO) 0.4 % (0.0-6.0); HEMATOCRIT 28 % (39-51); HEMOGLOBIN 9.4 g/dL (13.5-17.5); LYMPHOCYTES # (AUTO) 4.3 /CMM (0.8-4.8); LYMPHOCYTES % (AUTO) 16.8 % (20.0-44.0); MEAN CORPUSCULAR HEMOGLOBIN 28 PG (26.0-33.0); MEAN CORPUSCULAR HGB CONC 33 g/dl (31.0-36.0); MEAN CORPUSCULAR VOLUME 85 fL (80-96); MONOCYTES # (AUTO) 1.3 /CMM (0.1-1.30); MONOCYTES % (AUTO) 5.1 % (2.0-12.0); NEUTROPHILS # (AUTO) 19.1 /CMM (1.8-8.9); NEUTROPHILS % (AUTO) 75.2 % (43.0-81.0); PLATELET COUNT (AUTO) 309 /CMM (150-450); RDW COEFFICIENT OF VARIATION 18.5 (11.5-15.0); RED BLOOD CELL COUNT(AUTO) 3.33 MIL/uL (4.5-6.0); WHITE BLOOD COUNT (AUTO) 25.4 K/uL (4.3-11.0)
[2017-02-15] MEDS ORDERED: DOCU50LI GT (14:11)
[2017-02-15] MEDS ORDERED: FURO40TA5 GT (14:11)
[2017-02-15] MEDS ORDERED: GEL100GE TP (14:11)
[2017-02-15] MEDS ORDERED: AMIN30LI4 GT (14:11)
[2017-02-15] MEDS ORDERED: BLOO-668 IN (14:11)
[2017-02-15 14:21] LABS: CALCIUM, SERUM 8.1 mg/dL (8.5-10.1); CARBON DIOXIDE 31 mmol/L (21-32); CHLORIDE 104 mmol/L (98-107); CREATININE 1.2 mg/dL (0.6-1.3); GLUCOSE 230 mg/dL (74-106); POTASSIUM 3.7 mmol/L (3.5-5.1); SODIUM SERUM 144 mmol/L (136-145); UREA NITROGEN, BLOOD 27 mg/dL (7-18)
[2017-02-15 14:27] LABS: TROPONIN I 0.131 ng/mL (0.00-0.056)
[2017-02-15 14:29] LABS: PROTHROMBIN TIME 10.7 SECS (9.5-12.7)
[2017-02-15] MEDS ORDERED: PIPERACILLIN /TAZOBACTAM 3.375 G in IV D5W 50 ML IV ONE (14:30)
[2017-02-15] MEDS ORDERED: LEVOFLOXACIN 750 MG /D5W 150ML 150 ML IV ONE ×2 (14:30→14:38)
--- NOTE | 2017-02-15 14:30 | NUR ---
CALLED NURSING SUP. 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
[2017-02-15] MEDS ORDERED: FUROSEMIDE 40 MG/4 ML VIAL ONE (14:31)
[2017-02-15 14:32] LABS: LACTIC ACID 3.1 mmol/L (0.4-2.0)
[2017-02-15 14:33] LABS: ALANINE AMINOTRANSFERASE 12 U/L (12-78); ALBUMIN 1.6 g/dL (3.4-5.0); ALKALINE PHOSPHATASE 74 U/L (46-116); ASPARTATE AMINOTRANSFERASE 29 U/L (15-37); B-TYPE NATRIURETIC PEPTIDE 5129 PG/ML (0-125); BILIRUBIN,DIRECT 0.1 mg/dL (0.0-0.2); BILIRUBIN,TOTAL 0.5 mg/dL (0.2-1.0); TOTAL PROTEIN, SERUM 6.3 g/dL (6.4-8.2)
[2017-02-15 14:37] LABS: ANISOCYTOSIS 1+; LYMPHOCYTES % (MANUAL) 20 % (16-48); MONOCYTES % (MANUAL) 2 % (0-11.0); NEUTROPHILS % (MANUAL) 78 (42-76); PLATELET ESTIMATE ADEQUATE
--- NOTE | 2017-02-15 14:44 | NUR ---
[facility] PAGED, GLASS CUT OFF TENDER
[2017-02-15] MEDS ORDERED: IV NS 0.9% 500 ML IV ONE (14:53)
[2017-02-15] MEDS ORDERED: FUROSEMIDE 40 MG/4 ML VIAL IV ONE (15:00)
--- NOTE | 2017-02-15 15:02 | NUR ---
[facility] REPAGED
[2017-02-15] MEDS ORDERED: HYDROCODONE/APAP 5/325MG 1 EACH TABLET PO PRN ×2 (16:30→18:30)
[2017-02-15] MEDS ORDERED: ONDANSETRON HCL/PF 4 MG/2 ML VIAL IVP PRN ×2 (16:30→18:30)
[2017-02-15] MEDS ORDERED: ACETAMINOPHEN 325 MG TABLET PO PRN ×2 (16:30→18:30)
[2017-02-15] MEDS ORDERED: VANCOMYCIN 1 GM in IV D5W 250 ML IV SCH ×2 (16:30→16:45)
[2017-02-15] MEDS ORDERED: NTG 50 MG/D5W250 ML BOTTL 25 ML IV PRN ×2 (16:30→18:30)
[2017-02-15] MEDS ORDERED: DEXTROSE 50%-WATER 50 ML DISP.SYRIN IV PRN ×2 (16:30→18:30)
[2017-02-15] MEDS ORDERED: Z GUARD REMEDY 2 OZ OINT TP PRN (16:30)
[2017-02-15] MEDS ORDERED: GLYTROL 1,000 ML BAG GT SCH (16:30)
[2017-02-15] MEDS ORDERED: MORPHINE SULFATE INJ 2 MG/ML DISP.SYRIN IV PRN ×2 (16:30→18:30)
[2017-02-15] MEDS ORDERED: DIVALPROEX SODIUM 125 MG CAP.SPRINK GT SCH (17:00)
--- NOTE | 2017-02-15 17:10 | NUR ---
ICU/RN ADMITTING NOTE PT TRANSFERRED TO ICU FROM ER VIA [facility]. PT OBTUNDED, DOES NOT FOLLOW COMMANDS PUPILS DILATED, NON REACTIVE. ON NON REBREATHER MASK, MAINTAINING 02 SAT >95%, HOWEVER, EXCESSIVE SECRETIONS NOTED WHEN SUCTIONED VIA NARES. PT CONTINUES TO BE ON NITROGLYCERIN DRIP FOR BLOOD PRESSURE CONTROL. PIV PATENT AND INTACT. GARCIA IN PLACE, DRAINING YELLOW URINE. WOUND PICTURES TAKEN AND CHARTED.WILL CONTINUE TO MONITOR FOR SAFETY AND COMFORT.
[2017-02-15 17:20] LABS: APPEARANCE,URINE SL CLOUDY (CLEAR); BILIRUBIN,URINE NEGATIVE (NEGATIVE); BLOOD, URINE 3+ Ery/uL (NEGATIVE); COLOR,URINE YELLOW (YELLOW); KETONES,URINE NEGATIVE (NEGATIVE); LEUKOCYTE ESTERASE ,URINE NEGATIVE (NEGATIVE); NITRITE, URINE NEGATIVE (NEGATIVE); PROTEIN,URINE 3+ mg/dl (NEGATIVE); UGLUCOSE NEGATIVE (NEGATIVE); UROBILINOGEN,URINE 0.2 EU/dL (0.2)
[2017-02-15 17:46] LABS: ADD URINE CULTURE NO; BACTERIA,URINE Few /HPF (None Seen); RBC,URINE TOO NUMEROUS TO COUN /HPF (0-2); SQUAMOUS EPITHELIAL CELL,UR Rare /HPF (None Seen)
[2017-02-15] MEDS ORDERED: SECONDARY IV SET 1 EA INFUS.SET MC ONE (17:59)
[2017-02-15] MEDS ORDERED: IV NS 0.9% 250 ML IV ONE (17:59)
[2017-02-15 18:00] LABS: ABG BASE EXCESS -6.6 mmol/L; ABG OXYGEN SATURATION 97.8 % (92.0-98.5); ABG PCO2 26.9 mmHg (35.0-45.0); ABG PH 7.415 (7.350-7.450); ABG PO2 135.7 mmHg (75.0-100.0); ABG TOTAL HEMOGLOBIN 9.9 G/dL (13.5-18.0); AaDO2 550.4 mmHg; COHb 0.3 % (0.5-1.5); MetHb 1.5 % (0.0-1.5); SITE, ABG Right Radial; VENT MODE, BG NRB MASK
[2017-02-15] MEDS ORDERED: PIPERACILLIN /TAZOBACTAM 3.375 G in IV D5W 50 ML IV SCH (18:00)
[2017-02-15] MEDS ORDERED: VANCOMYCIN 0.75 GM in IV D5W 250 ML IV SCH (18:00)
[2017-02-15] MEDS ORDERED: FUROSEMIDE 40 MG/4 ML VIAL IV SCH (18:00)
[2017-02-15] MEDS ORDERED: FEE PK DOSING 1 MIN EA MC ONE (18:04)
[2017-02-15] MEDS: VANCOMYCIN 1 GM in IV D5W 250 ML IV SCH (18:13)
[2017-02-15] MEDS: BLOOD SUGAR DIAGNOSTIC 1 EACH STRIP IN SCH ×2 (18:19→23:27)
[2017-02-15] MEDS: DIVALPROEX SODIUM 125 MG CAP.SPRINK GT SCH (18:30)
[2017-02-15] MEDS ORDERED: IV NS 0.9% 1,000 ML BAG IV PRN (18:30)
[2017-02-15] MEDS: IV NS 0.9% 1,000 ML IV PRN (18:30)
--- NOTE | 2017-02-15 18:53 | NUR ---
ENDING SITE ENGINEER NOTE PT CONTINUES TO BE NON-VERBAL, DOES NOT RESPOND TO VERBAL OR PAINFUL STIMULI. ST ON TELE. TOLERATING NRB MASK. MIDLINE INSERTED ON RFA #20. NITRO DRIP CONTINUES TO INFUSE. GARCIA IN PLACE DRAINING YELLOW URINE. PT'S CARE WILL BE ENDORSED TO REED OR WIND INSTRUMENT TUNER RN FOR CONTINUITY OF CARE. DR. MURDOCK IN UNIT INFORMED OF TROPONIN TRENDING UP AND LACTIC ACID TRENDING DOWN. ACKNOWLEDGED
--- NOTE | 2017-02-15 19:45 | NUR ---
CARDIOVASCULAR LAB DIRECTOR DF RECEIVED PT TO ROOM#262.PT RESPONSIVE TO LIGHT STIMULI ONLY. OPENS EYES/WITHDRAWS TO TACTILE STIMULI. PER REPORT THIS IS PT,S BASELINE NEURO STATUS. 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 PUPILS SLUGGISH @3 WITH CATARACTS. PT ON NON REBREATHER MASK AT 15LPM O2 SAT OF 100% RR OF 22-26. ABG DONE BY PREVIOUS SHIFT. NO RESPIRATORY DISTRESS NOTED. PT SINUS RHYTHM ON MONITOR WITH OCCASIONAL PAC,S. ON NITROGYLCERIN GTT FOR CHF RATE WAS 30MCG SBP OF 104 DECREASED NTG GTT TO 15MCG PT ON NITROGYLCERIN 2ND CHF.PITTING EDEMA NOTED. VSS. PT HAS PEG AWAITING GLUCERNA TUBE FEEDING TO BE DELIVERED BY PHARMACY (I CALLED PHARMACY AWAITING DELIVERY OF MED).
[2017-02-15] MEDS ORDERED: PIPERACILLIN /TAZOBACTAM 4.5 G in IV D5W 50 ML IV SCH ×4 (21:00)
--- NOTE | 2017-02-15 21:46 | NUR ---
WARD MAID DF PER PREVIOUS NOTES PT STARTED ON GLUCERNA AT 60ML/HR.
[2017-02-15] MEDS ORDERED: ATORVASTATIN 40 MG TABLET GT SCH ×2 (22:00)
--- NOTE | 2017-02-15 22:34 | NUR ---
PINION SORTER DF TROPONIN LEVEL DRAWN AWAITING RESULTS. PT BP OF 144/79 SINUS TACHY AT 118BPM.TITRATED NITROGLYCERIN GTT TO 30 MCG/MIN. PT REQUIRED NASAL TRACHEAL SUCTIONING RETURN OF MINIMAL AMOUNT OF BLOOD TINGED SPUTUM.PT WITH RHONCHI,CONGESTED PT WITH WEAK COUGH REFLEX GAG REFLEX PRESENT.
--- NOTE | 2017-02-15 23:02 | NUR ---
TROPONIN 0.464 CRITICAL VALUE REPORTED BY LAB. MD MURDOCK AWARE OF TRENDS PT FOLLOWED BY CARDIOLOGY.VSS.NO DISTRESS NOTED.
[2017-02-15] MEDS: INSULIN REGULAR, HUMAN 100 UNIT/ML 3 ML VIAL SQ PRN (23:30)
[2017-02-15] MEDS: FUROSEMIDE 40 MG/4 ML VIAL IV SCH (23:32)
--- NOTE | 2017-02-15 23:38 | NUR ---
BIOMASS POWER PLANT SUPERINTENDENT DF PT ACCU CHECK OF 205 COVERED WITH 6 UNITS REGULAR INSULIN, PT RECEIVING GLYTROL @60 ML/HR. RT [place] AT BEDSIDE PT PLACED ON SIMPLE MASK AT 6LPM WITH O2 SAT OF 97%.
[2017-02-16] VITALS (53 sets, daily range): BP systolic 113–194; BP diastolic 57–151
--- NOTE | 2017-02-16 01:23 | NUR ---
BASEBALL CLUB MANAGER DF PLACED PT ON N/C@4LPM AUGUSTA RT AT BEDSIDE FOR NASOTRACHEAL SUCTIONING. O2 SAT 97-98$ RR OF 20-26. NITROGYLCERIN GTT 40 MCG.
[2017-02-16] MEDS: IV NS 0.9% 1,000 ML IV PRN (03:42)
[2017-02-16 04:50] LABS: BASOPHILS # (AUTO) 0.1 /CMM (0.0-0.2); BASOPHILS % (AUTO) 0.5 % (0.0-2.0); CALCIUM, SERUM 7.3 mg/dL (8.5-10.1); CREATININE 1.7 mg/dL (0.6-1.3); HEMATOCRIT 21 % (39-51); HEMOGLOBIN 7.4 g/dL (13.5-17.5); LYMPHOCYTES # (AUTO) 2.1 /CMM (0.8-4.8); LYMPHOCYTES % (AUTO) 11.5 % (20.0-44.0); MEAN CORPUSCULAR HEMOGLOBIN 31 PG (26.0-33.0); MEAN CORPUSCULAR HGB CONC 35 g/dl (31.0-36.0); MEAN CORPUSCULAR VOLUME 89 fL (80-96); MONOCYTES # (AUTO) 2.4 /CMM (0.1-1.30); MONOCYTES % (AUTO) 13.7 % (2.0-12.0); NEUTROPHILS # (AUTO) 13.2 /CMM (1.8-8.9); NEUTROPHILS % (AUTO) 74.3 % (43.0-81.0); PLATELET COUNT (AUTO) 232 /CMM (150-450); POTASSIUM 4.1 mmol/L (3.5-5.1); RDW COEFFICIENT OF VARIATION 18.5 (11.5-15.0); RED BLOOD CELL COUNT(AUTO) 2.38 MIL/uL (4.5-6.0); WHITE BLOOD COUNT (AUTO) 17.8 K/uL (4.3-11.0)
[2017-02-16 05:02] LABS: MAGNESIUM 1.7 mg/dL (1.8-2.4); PHOSPHORUS 3.5 mg/dL (2.5-4.9); THYROID STIMULATING HORMONE 1.086 uIU/mL (0.358-3.74)
[2017-02-16] MEDS: BLOOD SUGAR DIAGNOSTIC 1 EACH STRIP IN SCH ×3 (05:23→16:54)
[2017-02-16] MEDS: INSULIN REGULAR, HUMAN 100 UNIT/ML 3 ML VIAL SQ PRN ×3 (05:24→16:55)
[2017-02-16 05:47] LABS: BAND % (MANUAL) 47 % (0.0-5.0); LYMPHOCYTES % (MANUAL) 7 % (16-48); METAMYELOCYTES % 3 % (0-0); MONOCYTES % (MANUAL) 9 % (0-11.0); MYELOCYTES % 1 % (0-0); NEUTROPHILS % (MANUAL) 27 (42-76); REACTIVE LYMPHOCYTES 6 % (0-0)
[2017-02-16 05:48] LABS: ANISOCYTOSIS 2+; HYPOCHROMASIA 2+; PLATELET ESTIMATE ADEQUATE
[2017-02-16] MEDS: FUROSEMIDE 40 MG/4 ML VIAL IV SCH (06:59)
--- NOTE | 2017-02-16 07:35 | NUR ---
SHREDDED FILLER HOPPER FEEDER RECEIVED PATIENT FROM THE PREVIOUS SHIFT. PATIENT IN BED. NO ACUTE RESPIRATORY DISTRESS. AFEBRILE. OBTUNDED NEUROSTATUS. SINUS TACH ON MONITOR. TUBE FEEDING MONITORED.TURNED AND REPOSITIONED FOR COMFORT AND WOUND PREVENTION. WILL CONTINUE TO MONITOR AND PROVIDE CARE.
--- NOTE | 2017-02-16 08:08 | NUR ---
WOUND CARE CONSULT: PT PRESENTS WITH IMMOBILITY, INCONTINENCE OF STOOL AND GENERALIZED EDEMA. 3+ PITTING EDEMA NOTED TO BILATERAL LOWER LEGS AND FEET. MULTIPLE DRY HEALED BLISTERS NOTED WELL RT HIP, RT HEEL AND LEFT LAT FOOT SCARRING. PT ON FIRST STEP MATTRESS. PT TO BE TURNED AND REPOSITIONED EVERY 2 HRS PT CONDITION PERMITS, HEELS FLOATED. ALL SKIN PROTECTION MEASURES IN PLACE AND DISCUSSED WITH NURSING STAFF. SOME CONTRACTURES NOTED TO LOWER EXTREMITIES MAKING OFFLOADING DIFFICULT. WILL SEE PRN. FARFAN IN AGREEMENT WITH PLAN OF CARE. Addendum: 02/16/17 at 0813 by LANIE ROBERTSON WNDNU Amended: Links added.
[2017-02-16] MEDS ORDERED: SECONDARY IV SET 1 EA INFUS.SET MC ONE (08:27)
[2017-02-16] MEDS ORDERED: IV NS 0.9% 250 ML IV ONE ×2 (08:27→13:16)
[2017-02-16] MEDS: Magnesium 1GM/D5W 100ML PREMIX 100 ML IV SCH ×2 (08:32→09:31)
[2017-02-16] MEDS: DIVALPROEX SODIUM 125 MG CAP.SPRINK GT SCH ×2 (08:33→16:53)
[2017-02-16] MEDS: GLYTROL 1,000 ML BAG GT PRN ×2 (08:42→14:38)
[2017-02-16] MEDS ORDERED: PANTOPRAZOLE 40 MG VIAL IV SCH ×2 (09:00)
[2017-02-16] MEDS: NITROGLYCERIN 30 GM TUBE TOP SCH ×2 (10:33→20:24)
[2017-02-16] MEDS: VANCOMYCIN 1 GM in IV D5W 250 ML IV SCH (11:55)
[2017-02-16] MEDS: MUPIROCIN OINT 2% 22 GM TUBE SCH ×2 (11:55→20:25)
[2017-02-16] MEDS ORDERED: FUROSEMIDE 40 MG/4 ML VIAL IV SCH (12:00)
[2017-02-16] MEDS ORDERED: BLOOD IV SET 1 EA INFUS.SET MC ONE (13:16)
[2017-02-16] MEDS: ALBUTEROL HALF STRENGTH 1.25 MG/3 ML VIAL.NEB NEB SCH ×2 (14:05→20:15)
[2017-02-16] MEDS: IPRATROPIUM NEB FS 0.5 MG/2.5 ML AMPUL.NEB NEB SCH ×2 (14:05→20:15)
[2017-02-16] MEDS ORDERED: AMLODIPINE BESYLATE 5 MG TABLET PO SCH (14:30)
[2017-02-16] MEDS: LACTOBACILLUS RHAMNOSUS GG 1 EACH CAP.SPRINK PO SCH (16:53)
--- NOTE | 2017-02-16 19:30 | NUR ---
CARDIAC SONOGRAPHER: RECEIVED PT WT ONGOING 2ND UNIT PRBC TRANSFUSION. NOTED WT HIGH SBP. ON 4L 02 VIA NC WT 02 [address] ON MONITOR. NO S/S OF CONGESTION AT THIS TIME. F/C PATENT AND INTACT DRAINING YELLOW COLORED URINE TO GRAVITY. TOLERATING GTF WT 5CC RESIDUAL. NO ADVERSE REACTIONS NOTED AT THIS TIME. WILL CLOSELY MONITOR BP AND WILL INFORM MD NEEDED.
--- NOTE | 2017-02-16 20:22 | NUR ---
NAVAL AIRCREWMAN AVIONICS: NOTIFIED DR. ROSALES OF HIGH SBP WT ORDER TO GIVE LOPRESSOR 5MG IVP Q6H PRN FOR SBP ABOVE 160. NOTED AND CARRIED OUT.
[2017-02-16] MEDS: METOPROLOL TARTRATE INJ 5 MG/5 ML AMPUL IVP PRN (20:35)
--- NOTE | 2017-02-16 20:45 | NUR ---
EMERGENCY PLANNING AND RESPONSE MANAGER: 2ND UNIT OF PRBC TRANSFUSED. NO ADVERSE REACTIONS NOTED. PT REMAINED OBTUNDED. OPENS EYES WHEN PAIN STIMULI. REMAINED ON 4L 02 VIA NC WT NO ACUTE DISTRESS. NO EVIDENCE OF DISCOMFORT. REMAINED ST ON NURSING INFORMATION SYSTEMS COORDINATOR. LOPRESSOR GIVEN ORDERED FOR SBP ABOVE 160. WILL CONTINUE TO MONITOR.
[2017-02-16] MEDS: MEROPENEM 1 G in IV NS 0.9% 100 ML IV SCH (21:06)
[2017-02-16] MEDS ORDERED: hydrALAZINE HCL IV 20 MG VIAL ONE (21:44)
[2017-02-16] MEDS: hydrALAZINE HCL IV 20 MG VIAL IV PRN (21:51)
--- NOTE | 2017-02-16 21:55 | NUR ---
DRIVER RECRUITER: HYDRALAZINE GIVEN ORDERED DUE TO PERSISTENT SBP ABOVE 160 AND NOT RESOLVED WT LOPRESSOR. HR IMPROVED IN THE 90s AT THIS TIME. WILL CONTINUE TO MONITOR.
[2017-02-17] VITALS (55 sets, daily range): BP systolic 128–184; BP diastolic 60–95
[2017-02-17] MEDS: BLOOD SUGAR DIAGNOSTIC 1 EACH STRIP IN SCH ×4 (00:21→18:49)
[2017-02-17] MEDS: INSULIN REGULAR, HUMAN 100 UNIT/ML 3 ML VIAL SQ PRN ×3 (00:25→11:55)
[2017-02-17] MEDS ORDERED: IV SET PRIMARY PUMP SET 1 EA INFUS.SET MC ONE ×2 (00:25→16:28)
[2017-02-17] MEDS ORDERED: NTG 50 MG/D5W250 ML BOTTL 250 ML IV PRN (00:30)
--- NOTE | 2017-02-17 00:44 | NUR ---
VALET CASHIER: RESTARTED BACK ON NITRO DRIP AT 20MCG/MIN PER DR. ROSALES DUE TO CONSISTENT ELEVATED BP.
[2017-02-17] MEDS: ALBUTEROL HALF STRENGTH 1.25 MG/3 ML VIAL.NEB NEB SCH ×4 (01:35→19:39)
[2017-02-17] MEDS: IPRATROPIUM NEB FS 0.5 MG/2.5 ML AMPUL.NEB NEB SCH ×4 (01:35→19:39)
--- NOTE | 2017-02-17 03:15 | NUR ---
HYDROGEOLOGIST: NOTED WT DESATURATION AT 88-90%. PLACED ON 10L FACE MASK. DEEP SUCTION RENDERED WT SMALL AMT. OF PINK-TINGED THICK SECRETIONS.
--- NOTE | 2017-02-17 04:30 | NUR ---
BUILDING MANAGER: NOTED WITH DESATURATION SHORTLY AFTER BED BATH. PLACED ON 15L 02 VIA NRM. CONTINUE DEEP SUCTIONING.
[2017-02-17] MEDS: MEROPENEM 1 G in IV NS 0.9% 100 ML IV SCH ×3 (05:21→21:08)
[2017-02-17 05:24] LABS: BASOPHILS % (AUTO) 0.1 % (0.0-2.0); HEMATOCRIT 30 % (39-51); LYMPHOCYTES # (AUTO) 1.1 /CMM (0.8-4.8); LYMPHOCYTES % (AUTO) 6.6 % (20.0-44.0); MEAN CORPUSCULAR HEMOGLOBIN 30 PG (26.0-33.0); MEAN CORPUSCULAR HGB CONC 34 g/dl (31.0-36.0); MEAN CORPUSCULAR VOLUME 89 fL (80-96); MONOCYTES # (AUTO) 1.1 /CMM (0.1-1.30); NEUTROPHILS % (AUTO) 86.3 % (43.0-81.0); PLATELET COUNT (AUTO) 232 /CMM (150-450); RDW COEFFICIENT OF VARIATION 17.9 (11.5-15.0); RED BLOOD CELL COUNT(AUTO) 3.33 MIL/uL (4.5-6.0); WHITE BLOOD COUNT (AUTO) 16.3 K/uL (4.3-11.0)
[2017-02-17 05:59] LABS: ABG BASE EXCESS 5.5 mmol/L; ABG OXYGEN SATURATION 98.6 % (92.0-98.5); ABG PCO2 38.3 mmHg (35.0-45.0); ABG PH 7.497 (7.350-7.450); ABG PO2 257.1 mmHg (75.0-100.0); ABG TOTAL HEMOGLOBIN 10.4 G/dL (13.5-18.0); AaDO2 417.6 mmHg; COHb 0.3 % (0.5-1.5); O2Hb 97.3 % (94.0-97.0); SITE, ABG Right Radial
[2017-02-17] MEDS ORDERED: VANCOMYCIN 0.75 GM in IV D5W 250 ML IV SCH (06:00)
[2017-02-17 06:10] LABS: BAND % (MANUAL) 17 % (0.0-5.0); LYMPHOCYTES % (MANUAL) 3 % (16-48); MONOCYTES % (MANUAL) 6 % (0-11.0); NEUTROPHILS % (MANUAL) 74 (42-76)
[2017-02-17 06:11] LABS: ANISOCYTOSIS 1+; PLATELET ESTIMATE ADEQUATE
[2017-02-17 06:32] LABS: ALBUMIN 1.5 g/dL (3.4-5.0); BILIRUBIN,TOTAL 0.4 mg/dL (0.2-1.0); CALCIUM, SERUM 7.9 mg/dL (8.5-10.1); CREATININE 1.9 mg/dL (0.6-1.3); MAGNESIUM 2.4 mg/dL (1.8-2.4); PHOSPHORUS 3.9 mg/dL (2.5-4.9); POTASSIUM 3.6 mmol/L (3.5-5.1); TOTAL PROTEIN, SERUM 6.1 g/dL (6.4-8.2)
--- NOTE | 2017-02-17 06:50 | NUR ---
DESIGN MAKER: REMAINED OBTUNDED. PLACED ON 10L 02 VIA FACE MASK AFTER GETTING ABG RESULT. ON NITRO DRIP AT 40MCG/MIN. DEEP SUCTIONING NEEDED TO PREVENT DESATURATION. HOB KEPT ELEVATED AT ALL TIMES. WILL ENDORSE TO DAY SHIFT FOR CONTINUITY OF CARE.
[2017-02-17] MEDS ORDERED: CLONIDINE HCL 0.3 MG/24H PTWK 1 EA PATCH TD SCH ×2 (08:00→08:30)
--- NOTE | 2017-02-17 08:13 | NUR ---
SHOWER ROOM ATTENDANT RECEIVED PATIENT FORM THE PREVIOUS SHIFT. PATIENT IN BED. RESTING COMFORTABLY. NO ACUTE DISTRESS NOTED. EVEN NON LABORED BREATHING PATTERN. HOB ELEVATED 40 DEGREES. AFEBRILE. SINUS RHYTHM ON MONITOR. BP STABLE. TURNED AND REPOSITIONED FOR COMFORT AND WOUND PREVENTION. WILL CONTINUE TO MONITOR AND PROVIDE CARE.
[2017-02-17] MEDS: DIVALPROEX SODIUM 125 MG CAP.SPRINK GT SCH ×2 (08:23→18:49)
[2017-02-17] MEDS: LACTOBACILLUS RHAMNOSUS GG 1 EACH CAP.SPRINK PO SCH ×2 (08:23→18:48)
[2017-02-17 08:34] LABS: APPEARANCE,URINE CLEAR (CLEAR); BILIRUBIN,URINE NEGATIVE (NEGATIVE); BLOOD, URINE 3+ Ery/uL (NEGATIVE); COLOR,URINE YELLOW (YELLOW); KETONES,URINE NEGATIVE (NEGATIVE); LEUKOCYTE ESTERASE ,URINE NEGATIVE (NEGATIVE); NITRITE, URINE NEGATIVE (NEGATIVE); PROTEIN,URINE 2+ mg/dl (NEGATIVE); UGLUCOSE NEGATIVE (NEGATIVE); UROBILINOGEN,URINE 0.2 EU/dL (0.2)
[2017-02-17 09:07] LABS: CREATININE, URINE 48.1 MG/DL (30.0-125.0)
[2017-02-17 09:41] LABS: ADD URINE CULTURE NO; BACTERIA,URINE Rare /HPF (None Seen); RBC,URINE 21-50 /HPF (0-2)
[2017-02-17 09:42] LABS: SQUAMOUS EPITHELIAL CELL,UR Rare /HPF (None Seen)
[2017-02-17 09:44] LABS: WBC,URINE 0-2 /HPF (0-3)
[2017-02-17] MEDS: NITROGLYCERIN 30 GM TUBE TP SCH ×2 (09:53→21:09)
[2017-02-17 09:55] LABS: EOSINOPHIL,URINE None Seen
[2017-02-17] MEDS: MUPIROCIN OINT 2% 22 GM TUBE SCH ×2 (09:57→21:10)
[2017-02-17] MEDS ORDERED: IV NS 0.9% 250 ML IV ONE (11:54)
[2017-02-17] MEDS: GLYTROL 1,000 ML BAG GT PRN (11:55)
[2017-02-17] MEDS: PANTOPRAZOLE 40 MG VIAL IV SCH (11:55)
[2017-02-17] MEDS: DILTIAZEM HCL 30 MG TABLET PO SCH ×2 (11:56→18:49)
[2017-02-17 12:35] LABS: IRON, SERUM 26 ug/dl (50-175); TOTAL IRON BINDING CAPACITY 116 ug/dl (250-450)
[2017-02-17] MEDS: IV 1/2NS 1000 ML 1,000 ML IV PRN (12:51)
--- NOTE | 2017-02-17 15:40 | NUR ---
BILATERAL LE DVT STUDIES ARE POSITIVE FOR DVT. REPORT GIVEN TO KRISTY KATE, DR. CHAPPELL, AND DR. NORTH. NUC MED CALLED FOR STAT V/Q SCAN. FAMILY CALLED FOR CONSENT. HEPARIN DRIP TO START PER NON ACS PROTOCOL.
[2017-02-17] MEDS ORDERED: HEPARIN SODIUM, PORCINE 5000 UNITS/1 ML VIAL IV ONE ×2 (16:10)
[2017-02-17] MEDS: HEPARIN INFUSION/D5W 500 ML IV PRN (16:46)
--- NOTE | 2017-02-17 18:56 | NUR ---
PROTECTIVE SIGNAL OPERATIONS SUPERVISOR PATIENT WAS BROUGHT BACK FROM [place] VQ SCAN. PATIENT TOLERATED THE PROCEDURE WELL. RN MONITORED THE PATIENT THROUGHOUT THE PROCEDURE. INSULIN DOSE HELD SINCE PATIENT WAS OFF TUBE FEEDING DURING PROCEDURE.
--- NOTE | 2017-02-17 19:13 | NUR ---
NM:LUNG V/Q WAS COMPLETED. TECH : RB.
[2017-02-17 19:33] LABS: ABG BASE EXCESS 4.4 mmol/L; ABG OXYGEN SATURATION 92.9 % (92.0-98.5); ABG PCO2 37.4 mmHg (35.0-45.0); ABG PO2 64.2 mmHg (75.0-100.0); ABG TOTAL HEMOGLOBIN 11.3 G/dL (13.5-18.0); AaDO2 293.6 mmHg; COHb 0.7 % (0.5-1.5); MetHb 1.1 % (0.0-1.5); O2Hb 91.2 % (94.0-97.0); SITE, ABG Right Radial; VENT MODE, BG SIMPLE MASK
--- NOTE | 2017-02-17 19:34 | NUR ---
STAT ABG DONE. NOTIFIED RN AND WOOD BOX MAKER WITH THE RESULT.
--- NOTE | 2017-02-17 19:40 | NUR ---
HOMEBIRTH MIDWIFE: RT PLACED PT ON 15L 02 VIA NRM. NASOPHARYNGEAL SUCTIONING DONE WT SMALL AMT OF PINK TINGED THICK SECRETIONS. 02 SAT NOW 99%. WILL KEEP HOB ELEVATED AT ALL TIMES. CONTINUE ON 1/2 NS AT 60ML/HR AND HEPARIN DRIP AT 1100U/HR. RESUMED GTF.
--- NOTE | 2017-02-17 20:00 | NUR ---
DRILL RIG OPERATOR HELPER: DR. ROSALES MADE AWARE OF ABG RESULT. NO NEW ORDER AT THIS TIME. WILL CONTINUE TO PERFORM DEEP SUCTION.
--- NOTE | 2017-02-17 20:40 | NUR ---
MILLWRIGHT: RECEIVED RADIOLOGY REPORT FOR POSITIVE DVT ON LEFT LEG AND THROMBUS ON BILAT. GREATER SAPHENOUS VEINS. PT ALREADY ON HEPARIN DRIP FROM PRELIM. REPORT. DR. NURIA ROSALES MADE AWARE WT NO NEW ORDERS AT THIS TIME.
[2017-02-17] MEDS: METOPROLOL TARTRATE INJ 5 MG/5 ML AMPUL IVP PRN (22:05)
--- NOTE | 2017-02-17 23:00 | NUR ---
PRODUCTION POTTER: SUCTIONED WT MODERATE AMT OF PINK TINGED THICK SECRETIONS. PLACED ON 10L 02 VIA SIMPLE MASK.
[2017-02-18] VITALS (38 sets, daily range): BP systolic 121–176; BP diastolic 61–99
[2017-02-18] MEDS: BLOOD SUGAR DIAGNOSTIC 1 EACH STRIP IN SCH ×5 (00:27→23:34)
[2017-02-18] MEDS: INSULIN REGULAR, HUMAN 100 UNIT/ML 3 ML VIAL SQ PRN ×4 (00:28→23:38)
[2017-02-18] MEDS: DILTIAZEM HCL 30 MG TABLET PO SCH ×5 (00:30→23:35)
[2017-02-18] MEDS: ALBUTEROL HALF STRENGTH 1.25 MG/3 ML VIAL.NEB NEB SCH ×4 (00:48→20:05)
[2017-02-18] MEDS: IPRATROPIUM NEB FS 0.5 MG/2.5 ML AMPUL.NEB NEB SCH ×4 (00:48→20:05)
[2017-02-18 04:34] LABS: BASOPHILS # (AUTO) 0.1 /CMM (0.0-0.2); BASOPHILS % (AUTO) 0.4 % (0.0-2.0); HEMATOCRIT 32 % (39-51); HEMOGLOBIN 10.7 g/dL (13.5-17.5); LYMPHOCYTES # (AUTO) 2.3 /CMM (0.8-4.8); LYMPHOCYTES % (AUTO) 11.8 % (20.0-44.0); MEAN CORPUSCULAR HEMOGLOBIN 30 PG (26.0-33.0); MEAN CORPUSCULAR HGB CONC 34 g/dl (31.0-36.0); MEAN CORPUSCULAR VOLUME 89 fL (80-96); MONOCYTES # (AUTO) 0.8 /CMM (0.1-1.30); MONOCYTES % (AUTO) 4.3 % (2.0-12.0); NEUTROPHILS % (AUTO) 83.5 % (43.0-81.0); PLATELET COUNT (AUTO) 264 /CMM (150-450); RDW COEFFICIENT OF VARIATION 17.6 (11.5-15.0); RED BLOOD CELL COUNT(AUTO) 3.56 MIL/uL (4.5-6.0); WHITE BLOOD COUNT (AUTO) 19.1 K/uL (4.3-11.0)
[2017-02-18 04:46] LABS: CALCIUM, SERUM 7.7 mg/dL (8.5-10.1); CREATININE 1.8 mg/dL (0.6-1.3); MAGNESIUM 2.4 mg/dL (1.8-2.4); PHOSPHORUS 3.8 mg/dL (2.5-4.9); POTASSIUM 3.3 mmol/L (3.5-5.1)
[2017-02-18] MEDS: MEROPENEM 1 G in IV NS 0.9% 100 ML IV SCH ×3 (05:08→20:35)
[2017-02-18] MEDS: VANCOMYCIN 0.75 GM in IV D5W 250 ML IV SCH (06:10)
--- NOTE | 2017-02-18 06:40 | NUR ---
WAFER POLISHER: STILL ON 10L 02 VIA NC WT 98% 02 SAT. REQUIRED FREQUENT DEEP SUCTIONING DURING THE SHIFT WT SMALL TO MODERATE AMT. OF PINK-TINGED THICK SECRETIONS. NO EVIDENCE OF DISCOMFORT AT THIS TIME. AFEBRILE. PTT AT 0500=57 WT NO CHANGE FOR DOSAGE RATE PER PROTOCOL (1000U/HR). NO ACTIVE BLEEDING. CONTINUE IVF WT GOOD URINE OUTPUT. GT FEEDING WELL TOLERATED. HOB KEPT ELEVATED AT ALL TIMES. ALL NEEDS MET.
[2017-02-18] MEDS: MUPIROCIN OINT 2% 22 GM TUBE SCH ×2 (08:26→20:37)
[2017-02-18] MEDS: IV 1/2NS 1000 ML 1,000 ML IV PRN ×2 (08:28→23:34)
[2017-02-18] MEDS: DIVALPROEX SODIUM 125 MG CAP.SPRINK GT SCH ×2 (08:28→17:32)
[2017-02-18] MEDS: LACTOBACILLUS RHAMNOSUS GG 1 EACH CAP.SPRINK PO SCH ×2 (08:28→17:40)
[2017-02-18] MEDS: NITROGLYCERIN 30 GM TUBE TP SCH ×2 (08:30→20:36)
[2017-02-18] MEDS ORDERED: POTASSIUM CHLORIDE 20 MEQ TAB.PRT.SR PO SCH (09:00)
[2017-02-18] MEDS ORDERED: POTASSIUM CHLORIDE 20 MEQ POWDER PACKET GT ONE ×3 (10:00→12:00)
[2017-02-18] MEDS: PANTOPRAZOLE 40 MG VIAL IV SCH (11:14)
[2017-02-18] MEDS: HEPARIN INFUSION/D5W 500 ML IV PRN (14:50)
[2017-02-18 15:20] LABS: BASOPHILS # (AUTO) 0.1 /CMM (0.0-0.2); BASOPHILS % (AUTO) 0.6 % (0.0-2.0); HEMATOCRIT 28 % (39-51); HEMOGLOBIN 9.4 g/dL (13.5-17.5); LYMPHOCYTES # (AUTO) 2.2 /CMM (0.8-4.8); LYMPHOCYTES % (AUTO) 11.6 % (20.0-44.0); MEAN CORPUSCULAR HEMOGLOBIN 29 PG (26.0-33.0); MEAN CORPUSCULAR HGB CONC 34 g/dl (31.0-36.0); MEAN CORPUSCULAR VOLUME 87 fL (80-96); MONOCYTES % (AUTO) 5.3 % (2.0-12.0); NEUTROPHILS # (AUTO) 15.5 /CMM (1.8-8.9); NEUTROPHILS % (AUTO) 82.5 % (43.0-81.0); PLATELET COUNT (AUTO) 235 /CMM (150-450); RDW COEFFICIENT OF VARIATION 17.3 (11.5-15.0); RED BLOOD CELL COUNT(AUTO) 3.23 MIL/uL (4.5-6.0); WHITE BLOOD COUNT (AUTO) 18.8 K/uL (4.3-11.0)
--- NOTE | 2017-02-18 16:30 | NUR ---
DR CAREY NOTIFIED WITH CHANGE IN CBC WITH DROP IN HCT TO 28% AND THAT PT REMAINS ON HEPARIN GTT 1000 U HR
--- NOTE | 2017-02-18 17:19 | NUR ---
SENIOR [employer] CONSULTANT CALLED DR. PAYTON AND INFORMED ABOUT THE HBG DROP FROM 10.7 TO 9.4 BY 1500H. INFORMED MD THAT THERE IS NO OVERT BLEEDING NOTED. NO ORDERS TO REPEAT CBC TILL TOMORROW AM. NO ORDERS TO DISCONTINUE HEPARIN GTT. WILL CONTINUE TO MONITOR AND PROVIDE CARE.
[2017-02-18 18:17] LABS: ANISOCYTOSIS 1+; BAND % (MANUAL) 4 % (0.0-5.0); LYMPHOCYTES % (MANUAL) 11 % (16-48); MONOCYTES % (MANUAL) 6 % (0-11.0); NEUTROPHILS % (MANUAL) 79 (42-76); PLATELET ESTIMATE ADEQUATE
[2017-02-18] MEDS ORDERED: IV SET PRIMARY PUMP SET 1 EA INFUS.SET MC ONE (20:49)
[2017-02-18] MEDS: hydrALAZINE HCL IV 20 MG VIAL IV PRN (23:35)
[2017-02-19] VITALS (96 sets, daily range): BP systolic 52–184; BP diastolic 32–82
[2017-02-19] MEDS ORDERED: AMIODARONE 150 MG/3 ML VIAL IV ONE ×3 (00:47→19:01)
[2017-02-19] MEDS ORDERED: IV SET PRIMARY PUMP SET 1 EA INFUS.SET MC ONE ×2 (00:48→01:05)
[2017-02-19] MEDS ORDERED: IV D5W 500 ML IV ONE ×2 (00:48→01:05)
[2017-02-19] MEDS ORDERED: AMIODARONE 900 MG in IV D5W 482 ML IV PRN (01:00)
[2017-02-19] MEDS ORDERED: NOREPINEPHRINE 4 MG/4 ML AMPUL IV ONE (01:04)
--- NOTE | 2017-02-19 01:08 | NUR ---
SENIOR PAYROLL SPECIALIST: AT 0040 PETE GONZALES CALLED DUE TO PATIENT DESATURATES TO 50% ,BAGGED WITH AMBU BAG, HEAR RATE DROPPED TO 40 THEN CONVERTED TO ASYSTOLE, PEA, VFIB, SHOCKED ONCE, ACLS PROTOCOL INITIATED. PT INTUBATED BY ER DR EDEN , ON VENT WITH FIO2 100%. STAT CHEST X-RAY DONE FOR ETT PLACEMENT VERIFICATION. PETE BLUE SUCCESSFUL, POST RESUSCITATION DRIP AMIODARONE STARTED ORDERED BY ER DR. PRIMARY DR BOBBY QUIÑONES NOTIFIED, PT'S BP ALSO DROPPED TO 50/30, LEVOPHED DOUBLE CONCENTRATION STARTED. PT DOES NOT HAVE CENTRAL LINE , KIMBERLY ROSALES AT BEDSIDE INSERTING CENTRAL LINE. FAMILY NOTIFIED,PT'S AND PT'S S DAUGHTER MADE AWARE CURRENT EVENT,FAMILY WANTS TO DONE EVERYTHING IF CODED AGAIN, VERIFIED WITH PT'S DAUGHTER. CENTRAL LINE CONSENT GOT IT FROM DAUGHTER VIA PHONE WITNESSED BY ANOTHER RN/ED. EVENT: AFTER GAVE BED BATH AND TAKEN WOUND PICTURES ,PATIENT DESATURATES TO 50% EVEN WAS DESATURATES WITH AMBU BAG THEN CALLED ER ,PETE GONZALES INITIATED, HAD ASYSTOLE,PEA,V TECH , VFIB OCCURED DURING CODE.ACLS PROTOCOL INITIATED SEE ALL DOCUMENTATION ON CODE BLUE SHEET. STAT LABS DONE, WILL FOLLOW UP WITH PRIMARY MD. KEEP CLOSE MONITORING....
[2017-02-19 01:20] LABS: BASOPHILS % (AUTO) 0.3 % (0.0-2.0); HEMATOCRIT 26 % (39-51); HEMOGLOBIN 8.3 g/dL (13.5-17.5); LYMPHOCYTES # (AUTO) 1.3 /CMM (0.8-4.8); LYMPHOCYTES % (AUTO) 9.7 % (20.0-44.0); MEAN CORPUSCULAR HEMOGLOBIN 28 PG (26.0-33.0); MEAN CORPUSCULAR HGB CONC 32 g/dl (31.0-36.0); MEAN CORPUSCULAR VOLUME 88 fL (80-96); MONOCYTES # (AUTO) 0.8 /CMM (0.1-1.30); MONOCYTES % (AUTO) 5.9 % (2.0-12.0); NEUTROPHILS # (AUTO) 11.2 /CMM (1.8-8.9); NEUTROPHILS % (AUTO) 84.1 % (43.0-81.0); PLATELET COUNT (AUTO) 220 /CMM (150-450); RDW COEFFICIENT OF VARIATION 17.7 (11.5-15.0); RED BLOOD CELL COUNT(AUTO) 2.95 MIL/uL (4.5-6.0); WHITE BLOOD COUNT (AUTO) 13.3 K/uL (4.3-11.0)
[2017-02-19 01:30] LABS: CALCIUM, SERUM 8.5 mg/dL (8.5-10.1); POTASSIUM 3.8 mmol/L (3.5-5.1)
[2017-02-19] MEDS ORDERED: NOREPINEPHRINE 16 MG in IV D5W 500 ML IV PRN ×5 (01:30→08:00)
[2017-02-19 01:34] LABS: MAGNESIUM 2.9 mg/dL (1.8-2.4); PHOSPHORUS 4.9 mg/dL (2.5-4.9)
[2017-02-19 01:37] LABS: TROPONIN I 0.102 ng/mL (0.00-0.056)
--- NOTE | 2017-02-19 01:42 | NUR ---
AVIONICS MANAGER: CENTRAL LINE INSERTED BT DR ROSALES, AWAITING CHEST XRAY TO VERIFY THE PLACEMENT..
[2017-02-19] MEDS: ALBUTEROL HALF STRENGTH 1.25 MG/3 ML VIAL.NEB NEB SCH ×4 (01:47→19:21)
[2017-02-19] MEDS: IPRATROPIUM NEB FS 0.5 MG/2.5 ML AMPUL.NEB NEB SCH ×4 (01:47→19:21)
--- NOTE | 2017-02-19 01:50 | NUR ---
RECREATIONAL SPECIALIST: STAT LABS RESULTS SEE TONY ROSALES AT BEDSIDE, NO NEW ORDERS. ELECTROLYTES ARE WNL. WILL DO ABG SOON.
[2017-02-19] MEDS ORDERED: IV NS 0.9% 500 ML IV ONE (01:55)
[2017-02-19 02:08] LABS: ABG BASE EXCESS 3.9 mmol/L; ABG OXYGEN SATURATION 98.8 % (92.0-98.5); ABG PCO2 30.3 mmHg (35.0-45.0); ABG PH 7.552 (7.350-7.450); ABG PO2 290.9 mmHg (75.0-100.0); ABG TOTAL HEMOGLOBIN 9.3 G/dL (13.5-18.0); AaDO2 391.8 mmHg; COHb 0.3 % (0.5-1.5); O2Hb 97.5 % (94.0-97.0); PEEP,BG 5 cm H2O; SITE, ABG Right Radial
--- NOTE | 2017-02-19 02:10 | NUR ---
ABG DONE RN NOTIFIED WITH THE RESULT.
--- NOTE | 2017-02-19 02:22 | NUR ---
FLOOR WINDER: ABG RESULTS RELAYED TO DR ROSALES, CHANGES MADE , RATE CHANGE TO 14 FROM 18.
--- NOTE | 2017-02-19 02:25 | NUR ---
RATE CHANGED TO 14, TITRATED FIO2 PER DR ROSALES. RN NOTIFIED.
--- NOTE | 2017-02-19 03:02 | NUR ---
@0040 PT CODED O2 SAT IN THE 50% HR DROPPED STARTED BAGGING PT. PT UNRESPONSIVE CPR INITIATED. ER DR EDEN CAME UP FOR INTUBATION. THE PT INTUBATED WITH 7.5 ETT AT 25CM AT THE LIP. COLOR CHANGED ON CO2 DETECTOR. BILAT BREATH SOUNDS, EQUAL CHEST RISE. PLACED ON 840 VENT PER MD SETTINGS.
[2017-02-19 04:59] LABS: BASOPHILS # (AUTO) 0.1 /CMM (0.0-0.2); BASOPHILS % (AUTO) 0.3 % (0.0-2.0); HEMATOCRIT 26 % (39-51); HEMOGLOBIN 8.6 g/dL (13.5-17.5); LYMPHOCYTES # (AUTO) 1.7 /CMM (0.8-4.8); LYMPHOCYTES % (AUTO) 8.5 % (20.0-44.0); MEAN CORPUSCULAR HEMOGLOBIN 29 PG (26.0-33.0); MEAN CORPUSCULAR HGB CONC 33 g/dl (31.0-36.0); MEAN CORPUSCULAR VOLUME 89 fL (80-96); MONOCYTES # (AUTO) 1.3 /CMM (0.1-1.30); MONOCYTES % (AUTO) 6.7 % (2.0-12.0); NEUTROPHILS # (AUTO) 16.6 /CMM (1.8-8.9); NEUTROPHILS % (AUTO) 84.5 % (43.0-81.0); PLATELET COUNT (AUTO) 218 /CMM (150-450); RDW COEFFICIENT OF VARIATION 17.4 (11.5-15.0); RED BLOOD CELL COUNT(AUTO) 2.95 MIL/uL (4.5-6.0); WHITE BLOOD COUNT (AUTO) 19.7 K/uL (4.3-11.0)
[2017-02-19] MEDS: DILTIAZEM HCL 30 MG TABLET PO SCH (05:04)
[2017-02-19] MEDS: BLOOD SUGAR DIAGNOSTIC 1 EACH STRIP IN SCH ×3 (05:07→17:24)
[2017-02-19] MEDS: MEROPENEM 1 G in IV NS 0.9% 100 ML IV SCH ×2 (05:07→12:09)
[2017-02-19] MEDS: INSULIN REGULAR, HUMAN 100 UNIT/ML 3 ML VIAL SQ PRN ×2 (05:15→12:10)
[2017-02-19 05:19] LABS: CALCIUM, SERUM 7.8 mg/dL (8.5-10.1); CREATININE 1.8 mg/dL (0.6-1.3); MAGNESIUM 2.6 mg/dL (1.8-2.4); PHOSPHORUS 3.1 mg/dL (2.5-4.9); POTASSIUM 3.3 mmol/L (3.5-5.1)
[2017-02-19] MEDS: VANCOMYCIN 0.75 GM in IV D5W 250 ML IV SCH (05:28)
--- NOTE | 2017-02-19 05:28 | NUR ---
EPIC CUPID ANALYST: VANCOMYCIN DOSE HELD DUE TO TROUGH LEVEL 22 PER PHARMACY PROTOCOL.
--- NOTE | 2017-02-19 05:49 | NUR ---
SIDE STAPLER; PTT LEVEL 74, HEPARIN DRIP RATE CHANGED TO 900 UNITS/HR( 18 ML/HR) PER PROTOCOL, WITNESSED WITH ANOTHER RN/ED, Addendum: 02/19/17 at 0551 by HERNESTO SAHNI RN NEXT PTT WILL BE AT 1130 AM.
--- NOTE | 2017-02-19 05:51 | NUR ---
CARE REP; PT'S HEART RATE GOING DOWN TO 58 SINUS SHEEBA, NOTIFIED DR ROSALES, AMIODARONE DRIP STOPPED.
[2017-02-19] MEDS: LACTOBACILLUS RHAMNOSUS GG 1 EACH CAP.SPRINK PO SCH ×2 (08:09→17:15)
[2017-02-19] MEDS: DIVALPROEX SODIUM 125 MG CAP.SPRINK GT SCH ×2 (08:10→17:15)
[2017-02-19] MEDS: MUPIROCIN OINT 2% 22 GM TUBE SCH ×2 (08:11→21:00)
[2017-02-19] MEDS: POTASSIUM CHLORIDE 20 MEQ POWDER PACKET GT SCH ×3 (09:36→11:52)
[2017-02-19] MEDS: PANTOPRAZOLE 40 MG VIAL IV SCH (12:09)
[2017-02-19] MEDS ORDERED: SECONDARY IV SET 1 EA INFUS.SET MC ONE ×2 (12:15→14:09)
[2017-02-19] MEDS ORDERED: VANCOMYCIN 0.75 GM in IV D5W 250 ML IV SCH (13:00)
--- NOTE | 2017-02-19 13:45 | NUR ---
ELECTRICAL ASSEMBLY SUPERVISOR NOTE 0720: Received patient obtunded, with ETT to vent, tolerated settings at this time. No SOB noted. SB 57 on the monitor. With GT intact, clamped at this time. With DAVE midline, RIJ intact and RH g18 all intact. On Heparin drip @ 900units/hr and Levophed @ 4mcg, will titrate as ordered, also on 1/2 NS @ 60. Min cath intact, noted with clear ish colored urine drained to BSD. S/E by Dr. Mandujano, made aware for the K 3.3, with order to give 60mEq KCl /GT. 0820: Called Dr. Bowser's office and made aware for patient's condition. 0830: Assessed patient and noted with >5mm pupils with no reaction to light. No gag and cough reflex noted. Unable to gather temp orally, placed temperature probe nasally and noted 91.0, ordered anette hugger from [employer]. 0900: S/E by Dr. Fountain, no new order at this time. 1000: S/E by Dr. Lilly, no new order at this time. 1030: S/E by Dr. Joaquin, no new order. 1200: BS 179, 3 units RI given per SS and will restart feeding as ordered, made Dr. Otero in the unit aware. 1210: S/E by Dr. Otero, made aware for patient's pupil not reactive to light and no gag and cough reflexes, said she will contact Dr. Jones and ordered EEG. 1220: at bedside, updated re: patient's condition, spoke with Palma (daughter) via phone also given update re: patient's condition. All questions and concerns were answered. 1315: S/E by Pmo Analyst, with rec for Prostat, ordered.
[2017-02-19] MEDS ORDERED: VANCOMYCIN 500 MG in IV D5W 100 ML IV SCH (14:00)
--- NOTE | 2017-02-19 14:46 | NUR ---
PT RECEIVED ORALLY INTUBATED W/7.5 ETT @ 25CM LIPLINE, SECURED W/ ANCHOFAST. BREATH SOUNDS EQUAL, DIMINISHED. PT ON PB840 VENT W/ SETTINGS PER MD. VENT IN RED OUTLET, AMBUBAG AT BEDSIDE, VENT ALARMS CHECKED AND ADJUSTED, AUDIBLE. PT SX'ED AND LAVAGED PRN. NO RESP DISTRESS NOTED. PLAN IS TO CONTINUE CURRENT CARE W/ MD ORDERS AND MONITOR FOR CHANGES. Addendum: 02/19/17 at 1451 by ELADIO VILLEDA RT Amended: Links added.
[2017-02-19] MEDS: GLYTROL 1,000 ML BAG GT PRN (14:50)
[2017-02-19] MEDS: HEPARIN INFUSION/D5W 500 ML IV PRN (16:51)
[2017-02-19] MEDS ORDERED: ATROPINE SULFATE 1 MG/10 ML DISP.SYRIN IV ONE (18:59)
[2017-02-19] MEDS ORDERED: CALCIUM CHLORIDE 1,000 MG/10 ML DISP.SYRIN IV ONE (18:59)
--- NOTE | 2017-02-19 19:00 | NUR ---
AIRCRAFT LAYOUT WORKER NOTE Done with EEG, waiting for reading. Gathered blood for PTT, awaiting result, endorsed to next shift, still on Heparin 700 units/hr.
[2017-02-19] MEDS ORDERED: EPINEPHRINE (1:10,000) SYRINGE 1 MG/10 ML DISP.SYRIN IVP ONE (19:01)
--- NOTE | 2017-02-19 19:02 | NUR ---
VENT SETTINGS CHANGED TO AC 12, 450 PER MD'S ORDER. BLANCA STALEY NOTIFIED
[2017-02-19] MEDS ORDERED: SODIUM BICARBONATE SYR 50 MEQ/50 ML DISP.SYRIN IV ONE (19:03)
[2017-02-19] MEDS ORDERED: Magnesium 1 GM/2 ML VIAL IV ONE (19:03)
--- NOTE | 2017-02-19 19:22 | NUR ---
PT RCVD. ORALLY INTUBATED WITH 7.5 ETT @25 CM AT THE LIP. EQUAL BILATERAL BS. PT ON PB 840 VENT WITH NOTED SETTINGS. VENT ALARM CHECKED AND AUDIBLE. VENT PLUGGED INTO RED OUTLET, SXN SMALL AMOUNT OF THICK YELLOWISH WHITE SECRETIONS. NO RESPIRATORY DISTRESS NOTED AT THIS TIME. AMBU BAG AT BEDSIDE. WILL CONTINUE TO MONITOR.
[2017-02-19] MEDS: IV 1/2NS 1000 ML 1,000 ML IV PRN (19:39)
--- NOTE | 2017-02-19 20:00 | NUR ---
CHIEF SCHOOL FINANCE OFFICER; RECEIVED PT INTUBATED, NO SEDATION, PT IS NON RESPONSIVE, PUPILS ARE NOT REACTIVE TO LIGHT, ONGOING LEVOPHED DRIP AT 8 MCG/MIN. IV FLUID 1/2 NS AT 60 ML/HR. CURRENT VENT SETTING TOLERATING WELL. SUCTIONED PRN. FULL SYSTEM ASSESSMENT SEE ON FLOW SHEET. ONGOING MONITORING..
[2017-02-19] MEDS ORDERED: HEPARIN SODIUM, PORCINE 1,000 UNIT/ML VIAL IV ONE (20:30)
--- NOTE | 2017-02-19 22:38 | NUR ---
PRINCIPAL CLOUD ARCHITECT: PT'S CONDITION REMAINS THE SAME, ON LEVOPHED DRIP TITRATING PER BP READING, CONTINUE ON HEPARIN DRIP CHANGES MADE PER PROTOCOL, DRIP RATE INCREASED TO 800 UNITS/HR, NEXT PTT WILL BE AT 0200 AM. FAMILY WAS HERE EARLIER CONDITION UPDATED. NO GT FEEDING DUE TO HEMODYNAMICALLY UNSTABLE. CURRENT VENT SETTING TOLERATING WELL. ONGOING MONITORING..
[2017-02-20] VITALS (60 sets, daily range): BP systolic 61–192; BP diastolic 33–77
[2017-02-20] MEDS: BLOOD SUGAR DIAGNOSTIC 1 EACH STRIP IN SCH ×2 (00:19→06:09)
[2017-02-20] MEDS ORDERED: MEROPENEM 1 G in IV NS 0.9% 100 ML IV SCH (01:00)
[2017-02-20] MEDS: IPRATROPIUM NEB FS 0.5 MG/2.5 ML AMPUL.NEB NEB SCH ×2 (01:02→07:12)
[2017-02-20] MEDS: ALBUTEROL HALF STRENGTH 1.25 MG/3 ML VIAL.NEB NEB SCH ×2 (01:02→07:12)
[2017-02-20 05:17] LABS: BASOPHILS # (AUTO) 0.1 /CMM (0.0-0.2); BASOPHILS % (AUTO) 0.5 % (0.0-2.0); EOSINOPHILS # (AUTO) 1.9 /CMM (0.0-0.7); EOSINOPHILS % (AUTO) 9.8 % (0.0-6.0); HEMATOCRIT 27 % (39-51); LYMPHOCYTES # (AUTO) 2.5 /CMM (0.8-4.8); LYMPHOCYTES % (AUTO) 13.3 % (20.0-44.0); MEAN CORPUSCULAR HEMOGLOBIN 31 PG (26.0-33.0); MEAN CORPUSCULAR HGB CONC 34 g/dl (31.0-36.0); MEAN CORPUSCULAR VOLUME 91 fL (80-96); MONOCYTES # (AUTO) 1.2 /CMM (0.1-1.30); MONOCYTES % (AUTO) 6.2 % (2.0-12.0); NEUTROPHILS # (AUTO) 13.4 /CMM (1.8-8.9); NEUTROPHILS % (AUTO) 70.2 % (43.0-81.0); PLATELET COUNT (AUTO) 243 /CMM (150-450); RED BLOOD CELL COUNT(AUTO) 2.95 MIL/uL (4.5-6.0)
[2017-02-20 05:26] LABS: TROPONIN I 0.237 ng/mL (0.00-0.056)
[2017-02-20 05:29] LABS: BILIRUBIN,TOTAL 0.3 mg/dL (0.2-1.0); CALCIUM, SERUM 7.4 mg/dL (8.5-10.1); CREATININE 2.2 mg/dL (0.6-1.3); MAGNESIUM 2.3 mg/dL (1.8-2.4); PHOSPHORUS 4.4 mg/dL (2.5-4.9); POTASSIUM 3.7 mmol/L (3.5-5.1); TOTAL PROTEIN, SERUM 4.7 g/dL (6.4-8.2)
--- NOTE | 2017-02-20 08:00 | NUR ---
AUDIT SPEC RECEIVED PT IN BED COMATOSE, ON VENT O2 SAT 95%, SR ON TELE SBP STABLE ON LEVOPHED, PICC LINE PATENT INFUSING MEDS, PT IS ON WARM BLANKET TEMP DROPPED TO 94 DEGREES, NW ITS 97.5, TURN AND REPOSITION PT IN BED, ALL PT NEEDS MEET TURN AND REPOSITION.
[2017-02-20] MEDS: LACTOBACILLUS RHAMNOSUS GG 1 EACH CAP.SPRINK PO SCH (08:13)
[2017-02-20] MEDS: MUPIROCIN OINT 2% 22 GM TUBE SCH (08:13)
[2017-02-20] MEDS: DIVALPROEX SODIUM 125 MG CAP.SPRINK GT SCH (08:13)
[2017-02-20] MEDS ORDERED: IV 1/2NS 1000 ML 1,000 ML IV PRN (08:36)
[2017-02-20 09:08] LABS: ABG BASE EXCESS -0.8 mmol/L; ABG OXYGEN SATURATION 91.9 % (92.0-98.5); ABG PCO2 37.6 mmHg (35.0-45.0); ABG PH 7.415 (7.350-7.450); ABG TOTAL HEMOGLOBIN 9.8 G/dL (13.5-18.0); AaDO2 211.1 mmHg; COHb 0.2 % (0.5-1.5); O2Hb 90.8 % (94.0-97.0); PEEP,BG 5 cm H2O; SITE, ABG Right Radial; VT, ABG 450 mL
--- NOTE | 2017-02-20 10:26 | NUR ---
OYSTER PREPARER DR. RODRIGUEZ AT BEDSIDE ASSESSING PT COLD CALORIC TEST DONE NO RESPONSE FROM PT, PT WAS PUT ON BREADING TRIAL AT [address] RODRIGUEZ PERONONCED BRAIN WILL SPEAK WITH FAMILY REGARDING PT CARE.
--- NOTE | 2017-02-20 10:28 | NUR ---
LATE ENTRY-RT NOTE: ASSISTED WITH APNEA TEST. PATIENT WAS PREOXYGENATED, TAKEN OFF VENT AND PLACED ON 100% T-PIECE FOR 15 MINUTES. ABG DRAWN AND PLACED PATIENT BACK ON VENTILATOR WITH PREVIOUS SETTINGS. ABG REPORTED TO DR. RODRIGUEZ.
[2017-02-20 10:30] LABS: ABG BASE EXCESS -1.3 mmol/L; ABG OXYGEN SATURATION 65.9 % (92.0-98.5); ABG PCO2 58.7 mmHg (35.0-45.0); ABG PH 7.269 (7.350-7.450); ABG TOTAL HEMOGLOBIN 10.4 G/dL (13.5-18.0); AaDO2 613.3 mmHg; COHb 0.4 % (0.5-1.5); MetHb 1.2 % (0.0-1.5); O2Hb 64.8 % (94.0-97.0); SITE, ABG Right Radial; VENT MODE, BG APNEA TEST 100%
--- NOTE | 2017-02-20 10:41 | NUR ---
DEVULCANIZER OPERATOR PT OFF OF HEPARIN AND IV FLUIDS ORDERED BY DR. RODRIGUEZ PT STILL ON VENT AND LEVOPHED FAMILY WANT TO SAY GOOD BYE.
--- NOTE | 2017-02-20 12:02 | NUR ---
RT NOTE: PATIENT EXTUBATED PER MD ORDER AND PLACED ON 6 LPM VIA NASAL CANNULA WITH NURSE (TORIE) AT BEDSIDE.
--- NOTE | 2017-02-20 12:16 | NUR ---
LEAD JAVA J2EE DEVELOPER PT TERMINALLY EXTUBATED AT 1200 PLACED ON NC ALSO TURNED OFF LEVOPHED AT 1200 PT BECAME ASYSTOLE AT 1203 PRONOUNCED BY TRISTAN FIBRE CEMENT MOULDER NURSE, NO ADDABLE HEART SOUNDS, NO CHEST MOVEMENT, PUPILS DILATED NON REACTIVE +5, NO REFLEXES PRESENT, FAMILY AWARE WILL MOVE PT TO MERGE.
[2017-02-26 14:15] LABS: INFLUENZA A Negative (Negative); PARAINFLUENZA 2 Negative (Negative); PARAINFLUENZA 3 Negative (Negative)
== END 2017-02-20 12:03 | disposition expired | DRG 871 ==
LOC: ER 13:51 → UNDOADMIN 15:18 → ICU 15:18 → ER 16:22
PROC: 05H533Z Insertion of Infusion Device into Right Subclavian Vein, Percutaneous Approach (ICD-10-PCS; 2017-02-15)
PROC: 30233N1 Transfusion of Nonautologous Red Blood Cells into Peripheral Vein, Percutaneous Approach (ICD-10-PCS; 2017-02-16)
PROC: 5A1945Z Respiratory Ventilation, 24-96 Consecutive Hours (ICD-10-PCS; principal; 2017-02-19)
PROC: 0BH17EZ Insertion of Endotracheal Airway into Trachea, Via Natural or Artificial Opening (ICD-10-PCS; 2017-02-19)
PROC: 02HV33Z Insertion of Infusion Device into Superior Vena Cava, Percutaneous Approach (ICD-10-PCS; 2017-02-19)
PROC: B548ZZA Ultrasonography of Superior Vena Cava, Guidance (ICD-10-PCS; 2017-02-19)
PROC: 5A12012 Performance of Cardiac Output, Single, Manual (ICD-10-PCS; 2017-02-19)
DX: A41.9 Sepsis, unspecified organism (principal); J18.9 Pneumonia, unspecified organism; E43 Unspecified severe protein-calorie malnutrition; G93.40 Encephalopathy, unspecified; I50.43 Acute on chronic combined systolic (congestive) and diastolic (congestive) heart failure; I21.4 Non-ST elevation (NSTEMI) myocardial infarction; G93.41 Metabolic encephalopathy; R53.2 Functional quadriplegia; J96.01 Acute respiratory failure with hypoxia; N17.0 Acute kidney failure with tubular necrosis; I13.0 Hypertensive heart and chronic kidney disease with heart failure and stage 1 through stage 4 chronic kidney disease, or unspecified chronic kidney disease; G93.1 Anoxic brain damage, not elsewhere classified; E87.2 Acidosis; I82.412 Acute embolism and thrombosis of left femoral vein; R65.20 Severe sepsis without septic shock; Z86.73 Personal history of transient ischemic attack (TIA), and cerebral infarction without residual deficits; F02.80 Dementia in other diseases classified elsewhere, unspecified severity, without behavioral disturbance, psychotic disturbance, mood disturbance, and anxiety; G30.9 Alzheimer's disease, unspecified; M10.9 Gout, unspecified; F32.9 Major depressive disorder, single episode, unspecified; F41.9 Anxiety disorder, unspecified; N18.9 Chronic kidney disease, unspecified; E78.5 Hyperlipidemia, unspecified; Z93.1 Gastrostomy status; R13.10 Dysphagia, unspecified; D63.8 Anemia in other chronic diseases classified elsewhere; E11.22 Type 2 diabetes mellitus with diabetic chronic kidney disease; E78.00 Pure hypercholesterolemia, unspecified; I70.0 Atherosclerosis of aorta; Z86.14 Personal history of Methicillin resistant Staphylococcus aureus infection; Z66 Do not resuscitate
CPT/HCPCS: 31720; 36415; 36569; 36600; 71010-TC; 78582; 80048-TC; 80053-TC; 80061-TC; 80076-TC; 80202-TC; 81000-TC; 82570-TC; 82803-TC; 82962-TC; 83540-TC; 83605-TC; 83735-TC; 83880; 84100-TC; 84443-TC; 84484-TC; 85025-TC; 85730-TC; 86850-TC; 86921-TC; 87040-TC; 87070-TC; 87081-TC; 87086-TC; 87400; 93307-TC; 93970-TC; 94002-TC; 94003-TC; 94640-TC; 94760-TC; 94799-TC; 95819-TC; A4606; A4624; A6403; A9540; A9567; C1751; C9113; J0171; J0282; J0360; J0461; J1644; J1815; J1940; J1956; J2185; J2543; J3370; J3475; J3490; J7030; J7040; J7050; J7060; P9016-BL; Z7610